=== PATIENT | female | born 1970 | race American Indian/Alaskan Native ===

== ENCOUNTER 2018-03-28 10:48 | Emergency (ER) | payer OTHER ==
--- NOTE | 2018-03-28 11:31 | EDM.PDOC ---
ED HPI GENERAL MEDICAL PROBLEM - General Chief Complaint: Lower Extremity Injury/Pain Stated Complaint: RT KNEE INJURY Time Seen by Provider: 03/28/18 11:29 Source of Information: Reports: Patient History Limitations: Reports: No Limitations - History of Present Illness INITIAL COMMENTS - FREE TEXT/NARRATIVE: HISTORY AND PHYSICAL: History of present illness: Patient is a 47-year-old female here with complaint of right knee injury. She states that yesterday she was getting out of a pickup when her hip popped out and she fell landing on her right knee. She states she injured her right knee one year ago and has had problems with her right hip since then which will pop in and out 2-3 times daily. She denies any new or worsening pain in the hip since her injury yesterday. She states she is barely able to put weight on her right leg and feels as if her knee is unstable. Review of systems: As per history of present illness and below otherwise all systems reviewed and negative. Past medical history: As per history of present illness and as reviewed below otherwise noncontributory. Surgical history: As per history of present illness and as reviewed below otherwise noncontributory. Social history: No reported history of drug or alcohol abuse. Family history: As per history of present illness and as reviewed below otherwise noncontributory. Physical exam: General: Patient sitting comfortably in no acute distress and nontoxic appearing HEENT: Atraumatic, normocephalic, pupils reactive, negative for conjunctival pallor or scleral icterus, mucous membranes moist, throat clear, neck supple, nontender, trachea midline. No meningeal signs. Lungs: Clear to auscultation, breath sounds equal bilaterally, chest nontender. Heart: S1S2, regular, negative for clicks, rubs, or overt murmur. Abdomen: Soft, nondistended, nontender. Negative for masses or hepatosplenomegaly. Negative for costovertebral tenderness. Pelvis: Stable nontender. Genitourinary: Deferred. Rectal: Deferred. Extremities: Mild swelling of the right knee with tenderness to palpation of the posterior knee, medial joint line, patella. Negative anterior and posterior drawer, negative varus and valgus stress. CMS intact distally. No pain to palpation of the hips with normal range of motion. Atraumatic, negative for cords or calf pain. Neurovascular unremarkable. Neuro: Awake, alert, oriented. Cranial nerves II through XII unremarkable. Cerebellum unremarkable. Motor and sensory unremarkable throughout. Exam nonfocal. Notes: Diagnostics: X-ray right knee Therapeutics: Knee immobilizer and crutches Prescriptions: None Impression: Right knee injury Plan: 1. Ice, elevate, and Motrin as instructed 2. Follow-up with orthopedics, please call the number provided to schedule appointment 3. Return to ED as needed as discussed Definitive disposition and diagnosis as appropriate pending reevaluation and review of above. right knee Pain Score (Numeric/FACES): 9 - Related Data Allergies Allergy/AdvReac Type Severity Reaction Status Date / Time No Known Allergies Allergy Verified 03/28/18 11:05 Home Meds: Home Meds . [No Known Home Meds] 03/28/18 [History] Past Medical History HEENT History: Reports: None Cardiovascular History: Reports: None Respiratory History: Reports: None Gastrointestinal History: Reports: None Genitourinary History: Reports: None [employer] History: Reports: None Musculoskeletal History: Reports: Fibromyalgia, SLE, Other (See Below) Other Musculoskeletal History: hip dysplasia, buldging disc Neurological History: Reports: None Psychiatric History: Reports: None Endocrine/Metabolic History: Reports: None Hematologic History: Reports: None Immunologic History: Reports: None Oncologic (Cancer) History: Reports: None Dermatologic History: Reports: None - Infectious Disease History Infectious Disease History: Reports: Chicken Pox, Mumps, Other (See Below) Other Infectious Disease History: childhood - Past Surgical History Head Surgeries/Procedures: Reports: None HEENT Surgical History: Reports: None Cardiovascular Surgical History: Reports: None Respiratory Surgical History: Reports: None GI Surgical History: Reports: None Female Surgical History: Reports: None Endocrine Surgical History: Reports: None Neurological Surgical History: Reports: None Musculoskeletal Surgical History: Reports: None Oncologic Surgical History: Reports: None Dermatological Surgical History: Reports: None Social & Family History - Family History Family Medical History: Noncontributory - Tobacco Use Smoking Status *Q: Current Every Day Smoker Years of Tobacco use: 20 Packs/Tins Daily: 0.4 - Caffeine Use Caffeine Use: Reports: None - Recreational Drug Use Recreational Drug Use: No Review of Systems - Review of Systems Review Of Systems: ROS reveals no pertinent complaints other than HPI. ED EXAM, GENERAL - Physical Exam Exam: See Below (See dictation) Course - Vital Signs Last Recorded V/S: Last Vital Signs Temp 97.2 F 03/28/18 11:03 Pulse 77 03/28/18 11:03 Resp 18 03/28/18 11:03 BP 117/81 03/28/18 11:03 Pulse Ox 99 03/28/18 11:03 Departure - Departure Time of Disposition: 12:21 Disposition: Home, Self-Care 01 Condition: Good Clinical Impression: Right knee injury - Discharge Information Referrals: Daniel Ding [Primary Care Provider] - Forms: ED Department Discharge Additional Instructions: The following information is given to patients seen in the emergency department who are being discharged to home. This information is to outline your options for follow-up care. We provide all patients seen in our emergency department with a follow-up referral. The need for follow-up, as well as the timing and circumstances, are variable depending upon the specifics of your emergency department visit. If you don't have a primary care physician on staff, we will provide you with a referral. We always advise you to contact your personal physician following an emergency department visit to inform them of the circumstance of the visit and for follow-up with them and/or the need for any referrals to a consulting specialist. The emergency department will also refer you to a specialist when appropriate. This referral assures that you have the opportunity for follow-up care with a specialist. All of these measure are taken in an effort to provide you with optimal care, which includes your follow-up. Under all circumstances we always encourage you to contact your private physician who remains a resource for coordinating your care. When calling for follow-up care, please make the office aware that this follow-up is from your recent emergency room visit. If for any reason you are refused follow-up, please contact the [facility] Emergency Department at and asked to speak to the emergency department charge nurse. [facility] Professional [address], [address] [place] [address] 1. Ice, elevate, and Motrin as instructed 2. Follow-up with orthopedics, please call the number provided to schedule appointment 3. Return to ED as needed as discussed
--- NOTE | 2018-03-28 12:19 | CR ---
Indication: Injury and pain Technique: Right knee 3 views Comparison: None Findings/Impression: Bones: Alignment is normal. No fractures or bone lesions. Osteophytes are present in the patella. Joint spaces: Severe osteoarthritis is present in the lateral compartment of the patellofemoral joint. Moderate joint space narrowing is present in the knee joint medial compartment. No significant joint effusion. Soft tissues: Unremarkable. Dictated by Donaldo Banks MD @ Mar 28 2018 12:15PM Signed by Dr. Donaldo Banks @ Mar 28 2018 12:17PM
== END 2018-03-28 13:23 | disposition home or self-care (01) ==
LOC: MW.ED 10:48
DX: S89.91XA Unspecified injury of right lower leg, initial encounter (principal); W19.XXXA Unspecified fall, initial encounter; F17.210 Nicotine dependence, cigarettes, uncomplicated
CPT/HCPCS: 73562-26-RT; 73562-RT; 99283

== ENCOUNTER 2018-11-06 19:19 | Emergency (ER) | payer OTHER ==
[2018-11-06] MEDS ORDERED: Sodium Chloride 0.9% 2.5 ML Syringe FLUSH PRN (19:25)
[2018-11-06] MEDS ORDERED: Albuterol/Ipratropium 3.0-0.5 MG/3 ML Neb Soln NEB ONE (19:25)
[2018-11-06] MEDS ORDERED: Sodium Chloride 0.9% 10 ML Syringe FLUSH PRN (19:25)
[2018-11-06] MEDS ORDERED: Ondansetron 4 MG/2 ML SDV IVPUSH ONE (19:26)
[2018-11-06] MEDS ORDERED: Morphine 2 MG/ML Syringe IVPUSH ONE (19:26)
[2018-11-06] MEDS ORDERED: Ondansetron 4 MG/2 ML SDV ONE (19:27)
[2018-11-06] MEDS ORDERED: Morphine 4 MG/ML Syringe ONE (19:27)
[2018-11-06] MEDS ORDERED: Aspirin 81 MG Tab.Chew PO ONE (19:28)
--- NOTE | 2018-11-06 19:28 | EDM.PDOC ---
ED HPI GENERAL MEDICAL PROBLEM - General Chief Complaint: Chest Pain Stated Complaint: CHEST PAIN Time Seen by Provider: 11/06/18 19:23 - History of Present Illness INITIAL COMMENTS - FREE TEXT/NARRATIVE: HISTORY AND PHYSICAL: History of present illness: The patient is a 48-year-old female who denies pre-existing medical problems and has a history of a father who has cardiac disease and presents with episodic left upper chest wall pain that has been ongoing for the last 2 months but is worse the last 2 days and especially more intense this evening. She denies any trauma and has not had any cough or fevers shortness of breath or abdominal pain vomiting or diarrhea. She says that it intensified today and she did not take any medications for the pain in the last 2 days. She is a smoker and says that she "quit smoking last Wednesday" but smoked less than a half a pack per day in her history. She denies drug use. She says she has not had any URI symptoms and that the pain has always been the same location but tonight it is radiating to her left arm. She does not take any prescription medications except diclofenac. She denies and says that she is perimenopausal and she has been eating and drinking normally and admits that she did have one cocktail this evening.. She has no history of food intolerance no kidney issues and no urinary symptoms. She denies any upper abdominal pain more specifically in the left upper quadrant and she points to the left upper chest wall area as the site of her pain and cannot describe it just saying that it just "hurts". She has no neck pain no head neck or back pain. Despite her father's history the patient has never been diagnosed with any cardiac issues or pulmonary problems. Review of systems: As per history of present illness and below otherwise all systems reviewed and negative. Past medical history: As per history of present illness and as reviewed below otherwise noncontributory. Surgical history: As per history of present illness and as reviewed below otherwise noncontributory. Social history: No reported history of drug or alcohol abuse. Family history: As per history of present illness and as reviewed below otherwise noncontributory. Physical exam: General: Well-developed well-nourished overweight female who is nontoxic and speaking without breathlessness here in the ED. She looks uncomfortable and seems to have forced exhalations on my evaluation but can be redirected to stop. Vital signs are noted by me and she prefers to sit up in bed rather than lay down. She did have an episode of vomiting here in the ED but says that that is the first time. HEENT: Atraumatic, normocephalic, pupils reactive, negative for conjunctival pallor or scleral icterus, mucous membranes moist, throat clear, neck supple, nontender, trachea midline. Lungs: Clear to auscultation but there is tight exchange of air throughout all pearce and more diminished in the left base but no wheezing or stridor, there seems to be some abdominal work of breathing but it is unclear if this is voluntary or involuntary,, breath sounds equal bilaterally, chest nontender. There are no palpable defects or deformities in the left upper chest wall and there is some tenderness but I cannot reproduce the pain exactly. Heart: S1S2, regular rate and rhythm no overt murmurs Abdomen: Soft, nondistended, nontender. Specifically there is no left upper quadrant tenderness on palpation or epigastric tenderness, there is no rebound or guarding and bowel sounds are slightly hypoactive. Negative for masses or hepatosplenomegaly. Negative for costovertebral tenderness. Pelvis: Stable nontender. Genitourinary: Deferred. Rectal: Deferred. Extremities: Atraumatic, negative for cords or calf pain. Neurovascular unremarkable. No pedal edema or leg asymmetry Neuro: Awake, alert, oriented. Cranial nerves II through XII unremarkable. Cerebellum unremarkable. Motor and sensory unremarkable throughout. Exam nonfocal. Skin: There is no diaphoresis and turgor is normal, no overt rashes or lesions Diagnostics: EKG CBC CMP troponin d-dimer INR lactate alcohol level I view chest x-ray CTA of the chest Therapeutics: IV O2 monitor IV fluids Zofran aspirin duo neb morphine Patient refused morphine so Toradol was ordered Patient also refused Toradol and told nursing that she would rather medicate with alcohol and home as needed. Blood pressure is 119/72 and patient is insisting that she is feeling better and does not want further testing but has been explained to her that her d- dimer is elevated and she does need further workup. She and both understand and she is now agreeable to stay after my discussion with her. Patient says she is feeling completely asymptomatic and received no medications for pain. I discussed with her and her all testing results and said that in light of her lactate and the atelectasis seen on the CT scan we would proceed to place her on an antibiotic in case she is trying to manifest an infectious process. Patient follows at [facility] and says she will follow- up there tomorrow and I have advised her on reasons to return the ED. She is also aware of the CT scan findings of the distended stomach and we'll continue to monitor those symptoms but she has no abdominal discomfort. Due to her family history of cardiac disease in her father the patient was offered observation admission here to do serial EKGs and cardiac enzymes as it is not completely clear why the patient had this chest pain and she is declining at this time. She is speaking clearly and easily and is clinically competent and her is at bedside and concurs that he will return with her if there are any issues. She understands risks and accepts them as does the . Impression: Left chest pain resolved etiology unclear stable Definitive disposition and diagnosis as appropriate pending reevaluation and review of above. Chest Pain Score (Numeric/FACES): 7 - Related Data Allergies Allergy/AdvReac Type Severity Reaction Status Date / Time No Known Allergies Allergy Verified 11/06/18 19:26 Home Meds: Home Meds . [No Known Home Meds] 03/28/18 [History] Past Medical History HEENT History: Reports: None Cardiovascular History: Reports: None Respiratory History: Reports: None Gastrointestinal History: Reports: None Genitourinary History: Reports: None ORDER DISPATCHER History: Reports: None Musculoskeletal History: Reports: Fibromyalgia, SLE, Other (See Below) Other Musculoskeletal History: hip dysplasia, buldging disc Neurological History: Reports: None Psychiatric History: Reports: None Endocrine/Metabolic History: Reports: None Hematologic History: Reports: None Immunologic History: Reports: None Oncologic (Cancer) History: Reports: None Dermatologic History: Reports: None - Infectious Disease History Infectious Disease History: Reports: Chicken Pox, Mumps, Other (See Below) Other Infectious Disease History: childhood - Past Surgical History Head Surgeries/Procedures: Reports: None HEENT Surgical History: Reports: None Cardiovascular Surgical History: Reports: None Respiratory Surgical History: Reports: None GI Surgical History: Reports: None Female Surgical History: Reports: None Endocrine Surgical History: Reports: None Neurological Surgical History: Reports: None Musculoskeletal Surgical History: Reports: None Oncologic Surgical History: Reports: None Dermatological Surgical History: Reports: None Social & Family History - Family History Family Medical History: Noncontributory - Caffeine Use Caffeine Use: Reports: None ED ROS GENERAL - Review of Systems Review Of Systems: ROS reveals no pertinent complaints other than HPI. ED EXAM, GENERAL - Physical Exam Exam: See Below (See dictation) Course - Vital Signs Last Recorded V/S: Last Vital Signs Temp 36.1 C 11/06/18 19:20 Pulse 73 11/06/18 21:08 Resp 17 11/06/18 20:13 BP 122/73 11/06/18 21:08 Pulse Ox 98 11/06/18 21:08 - Orders/Labs/Meds Orders: Active Orders 24 hr Category Date Time Status Cardiac Monitoring [RC] . DIRECTED Care 11/06/18 19:24 Active EKG Documentation Completion [RC] STAT Care 11/06/18 19:24 Active Oxygen Therapy, ED [RC] ASDIRECTED Care 11/06/18 19:24 Active Pulse Oximetry [RC] ASDIRECTED Care 11/06/18 19:24 Active RT Aerosol Therapy [RC] ASDIRECTED Care 11/06/18 19:26 Active Sodium Chloride 0.9% [Normal Saline] 1,000 ml Med 11/06/18 19:30 Active IV ASDIRECTED Sodium Chloride 0.9% [Saline Flush] Med 11/06/18 19:25 Active 10 ml FLUSH ASDIRECTED PRN Sodium Chloride 0.9% [Saline Flush] Med 11/06/18 19:25 Active 2.5 ml FLUSH ASDIRECTED PRN Saline Lock Insert [OM.PC] Stat Oth 11/06/18 19:24 Ordered Medication Orders Sodium Chloride (Normal Saline) 1,000 mls @ 125 mls/hr IV ASDIRECTED ALEXI Last Infusion: 11/06/18 21:04 Dose: 999 mls/hr Admin: 11/06/18 19:34 Dose: 125 mls/hr Sodium Chloride (Saline Flush) 10 ml FLUSH ASDIRECTED PRN PRN Reason: Keep Vein Open Last Admin: 11/06/18 19:40 Dose: 10 ml Sodium Chloride (Saline Flush) 2.5 ml FLUSH ASDIRECTED PRN PRN Reason: Keep Vein Open Last Admin: 11/06/18 19:40 Dose: 2.5 ml Labs: Laboratory Tests 11/06/18 11/06/18 11/06/18 Range/Units 19:24 19:24 19:24 WBC 6.23 (4.0-11.0) K/uL RBC 4.49 (4.30-5.90) M/uL Hgb 15.4 (12.0-16.0) g/dL Hct 45.6 (36.0-46.0) % MCV 101.6 H (80.0-98.0) fL MCH 34.3 H (27.0-32.0) pg MCHC 33.8 (31.0-37.0) g/dL RDW Std Deviation 56.7 (28.0-62.0) fl RDW Coeff of Stephanie 15 (11.0-15.0) % Plt Count 214 (150-400) K/uL MPV 9.20 (7.40-12.00) fL Neut % (Auto) 46.0 L (48.0-80.0) % Lymph % (Auto) 42.9 H (16.0-40.0) % Kemper % (Auto) 10.1 (0.0-15.0) % Eos % (Auto) 0.5 (0.0-7.0) % Baso % (Auto) 0.5 (0.0-1.5) % Neut # (Auto) 2.9 (1.4-5.7) K/uL Lymph # (Auto) 2.7 H (0.6-2.4) K/uL Kemper # (Auto) 0.6 (0.0-0.8) K/uL Eos # (Auto) 0.0 (0.0-0.7) K/uL Baso # (Auto) 0.0 (0.0-0.1) K/uL Nucleated RBC % 0.0 /100WBC Nucleated RBCs # 0 K/uL INR 0.96 D-Dimer, Quantitative 0.77 H (0.0-0.50) mg/L FEU Lactate (0.20-2.00) mmol/L Sodium 142 (136-145) mmol/L Potassium 4.0 (3.5-5.1) mmol/L Chloride 105 (98-107) mmol/L Carbon Dioxide 21.9 (21.0-32.0) mmol/L BUN 9 (7.0-18.0) mg/dL Creatinine 1.1 H (0.6-1.0) mg/dL Est Cr Clr Drug Dosing TNP Estimated GFR (MDRD) 52.6 ml/min Glucose 108 H (74-106) mg/dL Calcium 9.6 (8.5-10.1) mg/dL Total Bilirubin 0.3 (0.2-1.0) mg/dL AST 99 H (15-37) IU/L ALT 48 (14-63) IU/L Alkaline Phosphatase 122 H (46-116) U/L Troponin I < 0.050 (0.000-0.056) ng/mL Total Protein 7.5 (6.4-8.2) g/dL Albumin 3.5 (3.4-5.0) g/dL Globulin 4.0 (2.6-4.0) g/dL Albumin/Globulin Ratio 0.9 (0.9-1.6) Urine Color Urine Appearance Urine pH (5.0-8.0) Ur Specific Dundee (1.001-1.035) Urine Protein (NEGATIVE) mg/dL Urine Glucose (UA) (NEGATIVE) mg/dL Urine Ketones (NEGATIVE) mg/dL Urine Occult Blood (NEGATIVE) Urine Nitrite (NEGATIVE) Urine Bilirubin (NEGATIVE) Urine Urobilinogen (<2.0) EU/dL Ur Leukocyte Esterase (NEGATIVE) Urine HCG, Qual (NEGATIVE) Ethyl Alcohol mg/dL 11/06/18 11/06/18 11/06/18 Range/Units 19:24 19:24 20:01 WBC (4.0-11.0) K/uL RBC (4.30-5.90) M/uL Hgb (12.0-16.0) g/dL Hct (36.0-46.0) % MCV (80.0-98.0) fL MCH (27.0-32.0) pg MCHC (31.0-37.0) g/dL RDW Std Deviation (28.0-62.0) fl RDW Coeff of Stephanie (11.0-15.0) % Plt Count (150-400) K/uL MPV (7.40-12.00) fL Neut % (Auto) (48.0-80.0) % Lymph % (Auto) (16.0-40.0) % Kemper % (Auto) (0.0-15.0) % Eos % (Auto) (0.0-7.0) % Baso % (Auto) (0.0-1.5) % Neut # (Auto) (1.4-5.7) K/uL Lymph # (Auto) (0.6-2.4) K/uL Kemper # (Auto) (0.0-0.8) K/uL Eos # (Auto) (0.0-0.7) K/uL Baso # (Auto) (0.0-0.1) K/uL Nucleated RBC % /100WBC Nucleated RBCs # K/uL INR D-Dimer, Quantitative (0.0-0.50) mg/L FEU Lactate 3.5 H (0.20-2.00) mmol/L Sodium (136-145) mmol/L Potassium (3.5-5.1) mmol/L Chloride (98-107) mmol/L Carbon Dioxide (21.0-32.0) mmol/L BUN (7.0-18.0) mg/dL Creatinine (0.6-1.0) mg/dL Est Cr Clr Drug Dosing Estimated GFR (MDRD) ml/min Glucose (74-106) mg/dL Calcium (8.5-10.1) mg/dL Total Bilirubin (0.2-1.0) mg/dL AST (15-37) IU/L ALT (14-63) IU/L Alkaline Phosphatase (46-116) U/L Troponin I (0.000-0.056) ng/mL Total Protein (6.4-8.2) g/dL Albumin (3.4-5.0) g/dL Globulin (2.6-4.0) g/dL Albumin/Globulin Ratio (0.9-1.6) Urine Color YELLOW Urine Appearance CLEAR Urine pH 5.5 (5.0-8.0) Ur Specific Dundee <= 1.005 (1.001-1.035) Urine Protein NEGATIVE (NEGATIVE) mg/dL Urine Glucose (UA) NEGATIVE (NEGATIVE) mg/dL Urine Ketones NEGATIVE (NEGATIVE) mg/dL Urine Occult Blood NEGATIVE (NEGATIVE) Urine Nitrite NEGATIVE (NEGATIVE) Urine Bilirubin NEGATIVE (NEGATIVE) Urine Urobilinogen 0.2 (<2.0) EU/dL Ur Leukocyte Esterase NEGATIVE (NEGATIVE) Urine HCG, Qual (NEGATIVE) Ethyl Alcohol 211 mg/dL 11/06/18 Range/Units 20:01 WBC (4.0-11.0) K/uL RBC (4.30-5.90) M/uL Hgb (12.0-16.0) g/dL Hct (36.0-46.0) % MCV (80.0-98.0) fL MCH (27.0-32.0) pg MCHC (31.0-37.0) g/dL RDW Std Deviation (28.0-62.0) fl RDW Coeff of Stephanie (11.0-15.0) % Plt Count (150-400) K/uL MPV (7.40-12.00) fL Neut % (Auto) (48.0-80.0) % Lymph % (Auto) (16.0-40.0) % Kemper % (Auto) (0.0-15.0) % Eos % (Auto) (0.0-7.0) % Baso % (Auto) (0.0-1.5) % Neut # (Auto) (1.4-5.7) K/uL Lymph # (Auto) (0.6-2.4) K/uL Kemper # (Auto) (0.0-0.8) K/uL Eos # (Auto) (0.0-0.7) K/uL Baso # (Auto) (0.0-0.1) K/uL Nucleated RBC % /100WBC Nucleated RBCs # K/uL INR D-Dimer, Quantitative (0.0-0.50) mg/L FEU Lactate (0.20-2.00) mmol/L Sodium (136-145) mmol/L Potassium (3.5-5.1) mmol/L Chloride (98-107) mmol/L Carbon Dioxide (21.0-32.0) mmol/L BUN (7.0-18.0) mg/dL Creatinine (0.6-1.0) mg/dL Est Cr Clr Drug Dosing Estimated GFR (MDRD) ml/min Glucose (74-106) mg/dL Calcium (8.5-10.1) mg/dL Total Bilirubin (0.2-1.0) mg/dL AST (15-37) IU/L ALT (14-63) IU/L Alkaline Phosphatase (46-116) U/L Troponin I (0.000-0.056) ng/mL Total Protein (6.4-8.2) g/dL Albumin (3.4-5.0) g/dL Globulin (2.6-4.0) g/dL Albumin/Globulin Ratio (0.9-1.6) Urine Color Urine Appearance Urine pH (5.0-8.0) Ur Specific Dundee (1.001-1.035) Urine Protein (NEGATIVE) mg/dL Urine Glucose (UA) (NEGATIVE) mg/dL Urine Ketones (NEGATIVE) mg/dL Urine Occult Blood (NEGATIVE) Urine Nitrite (NEGATIVE) Urine Bilirubin (NEGATIVE) Urine Urobilinogen (<2.0) EU/dL Ur Leukocyte Esterase (NEGATIVE) Urine HCG, Qual NEGATIVE (NEGATIVE) Ethyl Alcohol mg/dL Meds: Medications Generic Name Dose Route Start Last Admin Trade Name Freq PRN Reason Stop Dose Admin Sodium Chloride 1,000 mls @ 125 mls/hr 11/06/18 19:30 11/06/18 21:04 Normal Saline IV 999 mls/hr ASDIRECTED ALEXI Infusion Sodium Chloride 10 ml 11/06/18 19:25 11/06/18 19:40 Saline Flush FLUSH 10 ml ASDIRECTED PRN Administration Keep Vein Open Sodium Chloride 2.5 ml 11/06/18 19:25 11/06/18 19:40 Saline Flush FLUSH 2.5 ml ASDIRECTED PRN Administration Keep Vein Open Discontinued Medications Generic Name Dose Route Start Last Admin Trade Name Freemily PRN Reason Stop Dose Admin Albuterol/Ipratropium 3 ml 11/06/18 19:25 11/06/18 19:35 Duoneb 3.0-0.5 Mg/3 Ml NEB 11/06/18 19:26 3 ml ONETIME ONE Administration Aspirin 324 mg 11/06/18 19:28 11/06/18 19:40 Aspirin PO 11/06/18 19:29 324 mg ONETIME ONE Administration Iopamidol 68 ml 11/06/18 20:47 11/06/18 20:47 Isovue Multipack-370 (76%) IVPUSH 11/06/18 20:48 68 ml ONETIME ONE Administration Ketorolac Tromethamine 30 mg 11/06/18 19:36 11/06/18 19:40 Toradol IVPUSH 11/06/18 19:37 Not Given ONETIME ONE Morphine Sulfate 4 mg 11/06/18 19:26 11/06/18 19:37 Morphine IVPUSH 11/06/18 19:27 Not Given ONETIME ONE Morphine Sulfate Confirm 11/06/18 19:27 11/06/18 19:38 Morphine Administered 11/06/18 19:28 Not Given Dose 4 mg .ROUTE .STK-MED ONE Ondansetron HCl 4 mg 11/06/18 19:26 11/06/18 19:35 Zofran IVPUSH 11/06/18 19:27 4 mg ONETIME ONE Administration Ondansetron HCl Confirm 11/06/18 19:27 11/06/18 19:37 Zofran Administered 11/06/18 19:28 Not Given Dose 4 mg .ROUTE .STK-MED ONE Departure - Departure Time of Disposition: 21:40 Disposition: Home, Self-Care 01 Condition: Good Clinical Impression: Left-sided chest pain - Discharge Information Referrals: PCP,None [Primary Care Provider] - Forms: ED Department Discharge Additional Instructions: The following information is given to patients seen in the emergency department who are being discharged to home. This information is to outline your options for follow-up care. We provide all patients seen in our emergency department with a follow-up referral. The need for follow-up, as well as the timing and circumstances, are variable depending upon the specifics of your emergency department visit. If you don't have a primary care physician on staff, we will provide you with a referral. We always advise you to contact your personal physician following an emergency department visit to inform them of the circumstance of the visit and for follow-up with them and/or the need for any referrals to a consulting specialist. The emergency department will also refer you to a specialist when appropriate. This referral assures that you have the opportunity for followup care with a specialist. All of these measure are taken in an effort to provide you with optimal care, which includes your followup. Under all circumstances we always encourage you to contact your private physician who remains a resource for coordinating your care. When calling for followup care, please make the office aware that this follow-up is from your recent emergency room visit. If for any reason you are refused follow-up, please contact the [facility] emergency department at and ask to speak to the emergency department charge nurse. [facility] Primary care- Internal Medicine and Family [address] [address] Please call and follow-up at [facility] with your provider or one of our providers for reevaluation and further care and push hydration. Avoid alcohol and continue to reduce and quit tobacco use. Please use [id number] medications for pain management as you choose and please take antibiotics as directed. Return to ER as needed and as discussed - My Orders Last 24 Hours: My Active Orders 11/06/18 19:24 Cardiac Monitoring [RC] . DIRECTED EKG Documentation Completion [RC] STAT Oxygen Therapy, ED [RC] ASDIRECTED Pulse Oximetry [RC] ASDIRECTED Saline Lock Insert [OM.PC] Stat 11/06/18 19:25 Sodium Chloride 0.9% [Saline Flush] 10 ml FLUSH ASDIRECTED PRN Sodium Chloride 0.9% [Saline Flush] 2.5 ml FLUSH ASDIRECTED PRN 11/06/18 19:26 RT Aerosol Therapy [RC] ASDIRECTED 11/06/18 19:30 Sodium Chloride 0.9% [Normal Saline] 1,000 ml IV ASDIRECTED - Assessment/Plan Last 24 Hours: My Active Orders 11/06/18 19:24 Cardiac Monitoring [RC] . DIRECTED EKG Documentation Completion [RC] STAT Oxygen Therapy, ED [RC] ASDIRECTED Pulse Oximetry [RC] ASDIRECTED Saline Lock Insert [OM.PC] Stat 11/06/18 19:25 Sodium Chloride 0.9% [Saline Flush] 10 ml FLUSH ASDIRECTED PRN Sodium Chloride 0.9% [Saline Flush] 2.5 ml FLUSH ASDIRECTED PRN 11/06/18 19:26 RT Aerosol Therapy [RC] ASDIRECTED 11/06/18 19:30 Sodium Chloride 0.9% [Normal Saline] 1,000 ml IV ASDIRECTED
[2018-11-06] MEDS ORDERED: Sodium Chloride 0.9% 1,000 ML IV SCH (19:30)
[2018-11-06] MEDS ORDERED: Ketorolac 30 MG/ML SDV IVPUSH ONE (19:36)
--- NOTE | 2018-11-06 19:55 | CR ---
HISTORY: Shortness of breath. COMPARISON: None. FINDINGS: Single portable AP view of the chest. The lungs are clear. Costophrenic angles sharp. Mild elevation of the right hemidiaphragm. The heart size and pulmonary vascularity within normal limits. Bony structures appear intact. Dictated by Jennifer Booker MD @ Nov 06 2018 7:54PM Signed by Dr. Jennifer Booker @ Nov 06 2018 7:54PM
[2018-11-06 20:01] LABS: BLOOD UREA NITROGEN,BUN 9 mg/dL (7.0-18.0); CARBON DIOXIDE,CO2 21.9 mmol/L (21.0-32.0); CHLORIDE,CL 105 mmol/L (98-107); GLUCOSE RANDOM 108 mg/dL (74-106); SODIUM,NA 142 mmol/L (136-145)
[2018-11-06] MEDS ORDERED: Iopamidol 755 MG/ML 500 ML Multipack Bottle IVPUSH ONE (20:47)
--- NOTE | 2018-11-06 21:22 | CT ---
INDICATION: Chest pain. TECHNIQUE: CT chest angiogram performed after IV injection of 60 mL of Isovue-370. FINDINGS: Mild elevation right hemidiaphragm. No central pulmonary embolus. Peripheral pulmonary arterial opacification is somewhat washed out limiting evaluation of the more peripheral pulmonary arterial branches. No definite peripheral pulmonary embolus. Heart is mildly enlarged. Mild patchy ground-glass opacity in the lungs most prominent dependently and in the lower lobes could be in part related atelectasis but a component of inflammatory etiologies not excluded. Main pulmonary artery is mildly prominent. Postsurgical changes of prior gastric bypass surgery. Moderate amount of fluid with air-fluid level in the excluded portion of the stomach is more than typically expected.Tubular shaped areas of low-density in the central liver and left hepatic lobe may be related to vascular structures which are uncalcified. Remainder negative. IMPRESSION: 1. No acute disease in the chest including no pulmonary embolus. Peripheral pulmonary artery arteries are not well assessed due to the IV contrast bolus being somewhat washed out 2. Postsurgical changes of gastric bypass surgery with a moderate amount of fluid and air fluid level within the excluded portion the stomach. A moderate amount of fluid in the excluded portion of the stomach is more than typical. This finding could be further assessed with an follow-up upper GI exam if clinically desired. 3. Mild ground-glass opacity in the lungs may be related to atelectasis although a component of inflammation is not excluded. Please note that all CT scans at this facility use dose modulation, iterative reconstruction, and/or weight-based dosing when appropriate to reduce radiation dose to as low as reasonably achievable. Dictated by Subhash Silveira MD @ Nov 06 2018 9:19PM Signed by Dr. Subhash Silveira @ Nov 06 2018 9:19PM
== END 2018-11-06 21:50 | disposition home or self-care (01) ==
LOC: MW.ED 19:19
DX: R07.89 Other chest pain (principal)
CPT/HCPCS: 36415; 71045; 71275; 80053; 80320; 81003; 81025; 83605; 84484; 85025; 85379; 85610; 93005; 94640; 96374; 99285; A9270; J2405; J7040; Q9967; 99284; G0480; J7620-GY

== ENCOUNTER 2020-07-02 15:32 | Emergency (ER) | payer SELFPAY ==
[2020-07-02] MEDS ORDERED: Sodium Chloride 0.9% 1,000 ML IV ONE (15:50)
[2020-07-02] MEDS ORDERED: Meclizine 25 MG Tab PO ONE (15:50)
--- NOTE | 2020-07-02 15:56 | EDM.PDOC ---
ED HPI GENERAL MEDICAL PROBLEM - General Chief Complaint: General Stated Complaint: DIZZINESS AND PAIN IN LEGS,N/V Time Seen by Provider: 07/02/20 15:39 Source of Information: Reports: Patient History Limitations: Reports: No Limitations - History of Present Illness INITIAL COMMENTS - FREE TEXT/NARRATIVE: Patient is a 49-year-old female who presents today for dizziness for the past 2 to 3 weeks. Patient states this is made worse when she looks to the right. Patient also states she has been dealing with some neck and hip pain. Patient denies any nausea vomiting diarrhea chest pain shortness of breath fevers or chills. - Related Data Allergies Allergy/AdvReac Type Severity Reaction Status Date / Time promethazine [From Phenergan] Allergy Other Verified 07/02/20 15:56 Home Meds: Home Meds . [No Known Home Meds] 07/02/20 [History] Past Medical History HEENT History: Reports: None Cardiovascular History: Reports: None Respiratory History: Reports: None Gastrointestinal History: Reports: None Genitourinary History: Reports: None EDGER AUTOMATIC History: Reports: None Musculoskeletal History: Reports: Fibromyalgia, SLE, Other (See Below) Other Musculoskeletal History: hip dysplasia, buldging disc Neurological History: Reports: None Psychiatric History: Reports: None Endocrine/Metabolic History: Reports: None Insulin Pump Model and Manager Area: N/A Hematologic History: Reports: None Immunologic History: Reports: None Oncologic (Cancer) History: Reports: None Dermatologic History: Reports: None - Infectious Disease History Infectious Disease History: Reports: Chicken Pox, Mumps, Other (See Below) Other Infectious Disease History: childhood - Past Surgical History Head Surgeries/Procedures: Reports: None HEENT Surgical History: Reports: None Cardiovascular Surgical History: Reports: None Respiratory Surgical History: Reports: None GI Surgical History: Reports: None Female Surgical History: Reports: None Endocrine Surgical History: Reports: None Neurological Surgical History: Reports: None Musculoskeletal Surgical History: Reports: None Oncologic Surgical History: Reports: None Dermatological Surgical History: Reports: None Social & Family History - Family History Family Medical History: No Pertinent Family History Cardiac: Reports: Other (See Below) Other Cardiac Family History: States father have cardiac issues - Caffeine Use Caffeine Use: Reports: None ED ROS GENERAL - Review of Systems Review Of Systems: See Below Constitutional: Reports: No Symptoms HEENT: Reports: No Symptoms Respiratory: Reports: No Symptoms Cardiovascular: Reports: No Symptoms Endocrine: Reports: No Symptoms GI/Abdominal: Reports: No Symptoms : Reports: No Symptoms Musculoskeletal: Reports: No Symptoms Skin: Reports: No Symptoms Neurological: Reports: Dizziness Psychiatric: Reports: No Symptoms Hematologic/Lymphatic: Reports: No Symptoms Immunologic: Reports: No Symptoms ED EXAM, DIZZINESS - Physical Exam Exam: See Below Exam Limited By: No Limitations General Appearance: Alert, WD/WN, No Apparent Distress Eye Exam: Bilateral Eye: EOMI, PERRL Nystagmus: worsens with head to R Ears: Normal External Exam Head Exam: Atraumatic, Normocephalic Vertigo: worsens with head to R Neck: Supple, Non-Tender Respiratory/Chest: No Respiratory Distress, Lungs Clear Cardiovascular: Normal Peripheral Pulses, Regular Rate, Rhythm GI/Abdominal: Normal Bowel Sounds, Soft, Non-Tender Neurological: Alert, Normal Mood/Affect, Normal Dorsiflexion, CN II-XII Intact #1 Interpretation EKG Date: 07/02/20 Time: 15:40 Rhythm: NSR Rate (Beats/Min): 87 ST-T: Depressed Course - Vital Signs Last Recorded V/S: Last Vital Signs Temp 97.3 F 07/02/20 15:44 Pulse 80 07/02/20 16:54 Resp 17 07/02/20 16:54 BP 116/71 07/02/20 16:54 Pulse Ox 100 07/02/20 16:54 - Orders/Labs/Meds Orders: Active Orders 24 hr Category Date Time Status EKG Documentation Completion [RC] STAT Care 07/02/20 15:51 Active DRUG SCREEN, URINE [URCHEM] Stat Lab 07/02/20 15:51 Ordered UA W/MAULIK RFLX IF INDICATED [URIN] Stat Lab 07/02/20 15:51 Ordered Labs: Laboratory Tests 07/02/20 07/02/20 Range/Units 16:05 16:05 WBC 5.57 (4.0-11.0) K/uL RBC 3.14 L (4.30-5.90) M/uL Hgb 11.8 L (12.0-16.0) g/dL Hct 33.7 L (36.0-46.0) % MCV 107.3 H (80.0-98.0) fL MCH 37.6 H (27.0-32.0) pg MCHC 35.0 (31.0-37.0) g/dL RDW Std Deviation 67.8 H (28.0-62.0) fl RDW Coeff of Stephanie 18 H (11.0-15.0) % Plt Count 217 (150-400) K/uL MPV 9.90 (7.40-12.00) fL Neut % (Auto) 80.6 H (48.0-80.0) % Lymph % (Auto) 14.2 L (16.0-40.0) % [place] % (Auto) 5.0 (0.0-15.0) % Eos % (Auto) 0.0 (0.0-7.0) % Baso % (Auto) 0.2 (0.0-1.5) % Neut # (Auto) 4.5 (1.4-5.7) K/uL Lymph # (Auto) 0.8 (0.6-2.4) K/uL [place] # (Auto) 0.3 (0.0-0.8) K/uL Eos # (Auto) 0.0 (0.0-0.7) K/uL Baso # (Auto) 0.0 (0.0-0.1) K/uL Nucleated RBC % 0.0 /100WBC Nucleated RBCs # 0 K/uL Sodium 137 (136-145) mmol/L Potassium 3.9 (3.5-5.1) mmol/L Chloride 96 L (98-107) mmol/L Carbon Dioxide 27.5 (21.0-32.0) mmol/L BUN 10 (7.0-18.0) mg/dL Creatinine 1.1 H (0.6-1.0) mg/dL Est Cr Clr Drug Dosing 58.84 mL/min Estimated GFR (MDRD) 52.4 ml/min Glucose 97 (74-106) mg/dL Calcium 8.7 (8.5-10.1) mg/dL Phosphorus 4.3 (2.6-4.7) mg/dL Magnesium 1.5 L (1.8-2.4) mg/dL Total Bilirubin 3.0 H (0.2-1.0) mg/dL AST 176 H (15-37) IU/L ALT 42 (14-63) IU/L Alkaline Phosphatase 255 H (46-116) U/L Troponin I < 0.050 (0.000-0.056) ng/mL Total Protein 7.4 (6.4-8.2) g/dL Albumin 3.0 L (3.4-5.0) g/dL Globulin 4.4 H (2.6-4.0) g/dL Albumin/Globulin Ratio 0.7 L (0.9-1.6) Lipase 48 L (73-393) U/L Meds: Medications Discontinued Medications Generic Name Dose Route Start Last Admin Trade Name Freq PRN Reason Stop Dose Admin Diphenhydramine HCl 25 mg 07/02/20 16:39 07/02/20 16:44 Diphenhydramine 50 Mg/Ml Sdv IVPUSH 07/02/20 16:40 25 mg ONETIME ONE Administration Sodium Chloride 1,000 mls @ 999 mls/hr 07/02/20 15:50 07/02/20 15:56 Normal Saline IV 07/02/20 16:50 999 mls/hr .BOLUS ONE Administration Meclizine HCl 50 mg 07/02/20 15:50 07/02/20 15:56 Meclizine 25 Mg Tab PO 07/02/20 15:51 50 mg ONETIME ONE Administration - Re-Assessments/Exams Free Text/Narrative Re-Assessment/Exam: 07/02/20 17:26 So patient labs were reviewed. Patient does have elevated alk phos but no abdominal tenderness. We made patient aware of the ST depressions in her EKG again she does not have any chest pain tropes are negative. Patient again with x-rays not really even had dizziness she more still has tingling of her upper extremities. Patient also reports repeatedly stumbling or falling due to these pains in her back and lower extremities. Patient is reluctant to take any pain meds. Patient also is not sure about physical therapy. We also reported we can refer patient to a spine surgeon if continue to have the symptoms and back pain. Departure - Departure Time of Disposition: 17:28 Disposition: Home, Self-Care 01 Condition: Good Clinical Impression: Spinal pain - Discharge Information *PRESCRIPTION DRUG MONITORING PROGRAM REVIEWED*: Not Applicable *COPY OF PRESCRIPTION DRUG MONITORING REPORT IN PATIENT IRMA: Not Applicable Instructions: Chronic Back Pain, [id number] Referrals: PCP,None [Primary Care Provider] - Forms: ED Department Discharge Additional Instructions: The following information is given to patients seen in the emergency department who are being discharged to home. This information is to outline your options for follow-up care. We provide all patients seen in our emergency department with a follow-up referral. The need for follow-up, as well as the timing and circumstances, are variable depending upon the specifics of your emergency department visit. If you don't have a primary care physician on staff, we will provide you with a referral. We always advise you to contact your personal physician following an emergency department visit to inform them of the circumstance of the visit and for follow-up with them and/or the need for any referrals to a consulting specialist. The emergency department will also refer you to a specialist when appropriate. This referral assures that you have the opportunity for follow-up care with a specialist. All of these measure are taken in an effort to provide you with optimal care, which includes your follow-up. Under all circumstances we always encourage you to contact your private physician who remains a resource for coordinating your care. When calling for follow-up care, please make the office aware that this follow-up is from your recent emergency room visit. If for any reason you are refused follow-up, please contact the [facility] Emergency Department at and asked to speak to the emergency department charge nurse. Please follow up with your primary care physician. If you do not have a primary care physician, see below: Neurosurgery [facility] [phone] [address], [place] [id number] You were seen today for a multiple of symptoms. You initially complained of some dizziness that we addressed with meclizine. You also reported you have been having frequent falls due to pain in your lower extremities and back. He also has some pain in your neck when turning head to the right. You had no change in vision or numbness tingling to your face. You may be having this pain from your previous spinal injuries that she reported. We recommend you try the rehab and if that does not work we also put a above information to follow-up with a spine surgery. If you have any other concerning symptoms please return to the ED. We also told her that her EKG has some changes but you are not having any chest pain if you have any chest pain or other symptoms please return to the ED. Sepsis Event Note (ED) - Evaluation Sepsis Screening Result: No Definite Risk - Focused Exam Vital Signs: Vital Signs Temp Pulse Resp BP Pulse Ox 07/02/20 16:54 80 17 116/71 100 07/02/20 15:44 97.3 F 100 18 114/78 100 - My Orders Last 24 Hours: My Active Orders 07/02/20 15:51 EKG Documentation Completion [RC] STAT DRUG SCREEN, URINE [URCHEM] Stat UA W/MAULIK RFLX IF INDICATED [URIN] Stat - Assessment/Plan Last 24 Hours: My Active Orders 07/02/20 15:51 EKG Documentation Completion [RC] STAT DRUG SCREEN, URINE [URCHEM] Stat UA W/MAULIK RFLX IF INDICATED [URIN] Stat Plan: Patient is a 49-year-old female presents today for dizziness for the past 2 or 3 weeks. Patient dizziness reproducible on exam. Patient does not seem to be peripheral. Will give meclizine labs and reassess.
[2020-07-02] MEDS ORDERED: diphenhydrAMINE 50 MG/ML SDV IVPUSH ONE (16:39)
[2020-07-02 16:48] LABS: BLOOD UREA NITROGEN,BUN 10 mg/dL (7.0-18.0); CARBON DIOXIDE,CO2 27.5 mmol/L (21.0-32.0); CHLORIDE,CL 96 mmol/L (98-107); GLUCOSE RANDOM 97 mg/dL (74-106); LIPASE 48 U/L (73-393); POTASSIUM,K 3.9 mmol/L (3.5-5.1); SODIUM,NA 137 mmol/L (136-145)
--- NOTE | 2020-07-02 16:54 | CR ---
Indication: Dizziness Comparison: Single view chest November 06, 2018 Technique: Single AP view chest Findings: There is hyperinflation and chronic interstitial change. There is no focal consolidation, effusion, or pneumothorax. The cardiomediastinal silhouette is within normal limits. The bony thorax is grossly intact. Impression: There is hyperinflation and chronic interstitial change without dense consolidation. Dictated by Cholo Murillo MD @ 07/02/2020 4:52:[address] Cholo Murillo @ Jul 02 2020 4:52PM
--- NOTE | 2020-07-02 18:43 | CT ---
INDICATION: Epigastric abdominal pain; elevated alkaline phosphatase; history of gastric bypass surgery. COMPARISON: None. TECHNIQUE: CT abdomen and pelvis with intravenous contrast; coronal and sagittal reformats. FINDINGS: Diffuse severe fatty infiltration of the liver. Hepatomegaly with the liver measuring 25 x 26 x 20 cm. No focal hepatic pathology. No splenic pathology. No pancreatic pathology. Gallbladder is unremarkable. Status post gastric bypass surgery. No adrenal pathology. No kidneys stones or obstructive uropathy. No retroperitoneal lymphadenopathy. No evidence of abdominal or pelvic ascites. No pneumoperitoneum or intestinal obstruction. CT study of the pelvis is unremarkable. Splenic vein, superior mesenteric vein and the portal vein are unremarkable. No abnormal intra pulmonary nodular densities are identified. No evidence of pleural effusion. Normal size cardiac silhouette without any evidence of pericardial effusion. IMPRESSION: 1. Diffuse severe fatty infiltration of the liver with hepatomegaly. 2. Status post gastric bypass surgery. 3. Negative CT abdomen and pelvis with intravenous contrast otherwise. Please note that all CT scans at this facility use dose modulation, iterative reconstruction, and/or weight-based dosing when appropriate to reduce radiation dose to as low as reasonably achievable. Dictated by Brandi Morataya MD @ 07/02/2020 6:42:[address] Brandi Morataya @ Jul 02 2020 6:42PM
== END 2020-07-02 19:25 | disposition home or self-care (01) ==
LOC: MW.ED 15:32
DX: M54.2 Cervicalgia (principal); Z88.8 Allergy status to other drugs, medicaments and biological substances
CPT/HCPCS: 36415; 71045; 74177; 80053; 80305; 80307; 81001; 83690; 83735; 84100; 84484; 85025; 96374; 99284; A9270; J1200; J7030

== ENCOUNTER 2020-08-23 16:53 | Emergency (ER) | payer MEDICAID ==
--- NOTE | 2020-08-23 19:05 | EDM.PDOC ---
ED HPI GENERAL MEDICAL PROBLEM - General Chief Complaint: Skin Complaint Stated Complaint: RASH ON HANDS, DIZZINESS Time Seen by Provider: 08/23/20 18:02 - History of Present Illness INITIAL COMMENTS - FREE TEXT/NARRATIVE: CHIEF COMPLAINT(S): Rash HISTORY OF PRESENT ILLNESS: He is a 49-year-old woman with a past medical history of gastric bypass who presents to the emergency department with a rash. The patient states that she has had the rash since August 13. She states that she was planting Spanish mint and lemon grass because she is trying to keep away by mosquitoes and bugs. She states [place] however she did have some sun exposure to her hands, legs, and feet. She states that since that day she has been experiencing a rash located on her back of her hands and the back of her arm all the way up to the elbow not around the elbow or around the arm, the top of her knees and the top of her feet. She states that this rash does not itch does not hurt and does not seem to be getting larger. She denies any fevers or chills. She states that in addition to this she got a [employer] vaccine on August 14 and she had minimal side effects except for some dizziness and tiredness the day after which had resolved. She states that the rash does not burn when exposed to sun. She states that she has been putting aloe vera on the rash which does not seem to be helping it and states that her left hand feels like it is stiff. He denies any blisters but states that the skin is sloughing off. She denies any mucosal lesions. She denies any history of liver disease. She denies any exposures. Otherwise ROS is negative. REVIEW OF SYSTEMS: Constitutional: Denies fever, chills. Eyes: Denies eye pain Ears, Nose, Mouth, & Throat: Denies earache Cardiovascular: Denies chest pain Respiratory: Denies shortness of breath Gastrointestinal: Denies Nausea, vomiting, diarrhea, hematochezia. Genitourinary: Denies hematuria Skin: Positive for rash on hands, arms, knee, feet which is red with sloughing of skin MSK: Denies joint pain Neurological: Denies blurred vision, numbness, tingling, weakness Psychiatric: Denies depression PAST MEDICAL HISTORY: As per history of present illness and as reviewed below otherwise noncontributory. SURGICAL HISTORY: As per history of present illness and as reviewed below otherwise noncontributory. SOCIAL HISTORY: As per history of present illness and as reviewed below otherwise noncontributory. FAMILY HISTORY: As per history of present illness and as reviewed below otherwise noncontributory. EXAMINATION OF ORGAN SYSTEMS/BODY AREAS: Constitutional: Blood pressure was 122/83, heart rate 88, respiratory rate 18 with oxygen saturation of 100% on room air. Temperature 30.3 General: A well-appearing woman who is in no acute distress. Nontoxic-appearing psychiatric: Appropriate mood and affect. Eyes: No scleral icterus or conjunctival erythema ENMT: Moist mucous membranes. No pharyngeal erythema no cracked lips, no mucosal lesions. Uvula was midline. Tongue not enlarged. Cardiovascular: Regular, rate, and rhythm. No gallops, murmurs, or rubs. Bilateral upper extremity pulses symmetric and intact. No peripheral edema. No JVD. Respiratory: Lungs clear to auscultation bilaterally. No wheezes, rales, or rhonchi. Gastrointestinal: Soft, non-tender, non-distended. Normoactive bowel sounds Genitourinary: No suprapubic tenderness Musculoskeletal: Normal range of motion. Full range of motion of bilateral hands, R, knee Skin: The patient has a red flaky skin rash located on the posterior aspect of her bilateral hand and forearm extending to the elbow could this rest not on the palms or the soles of the feet. Rashes not on any flexural area. The same rash exist on the lateral top of the knee and the bilateral foot skin sloughing area. Neurological: Alert, GCS 15 distal sensation intact MEDICAL DECISION MAKING AND COURSE IN THE ED WITH INTERPRETATION/REVIEW OF DIAGNOSTIC STUDIES: Is a 49-year-old medical history of prior gastric bypass presents to the emergency department with bilateral red flaky rash located on the tear aspect of the hand, forearm, top of the foot with vital signs and she appears nontoxic. At this time will obtain screening labs. I do believe this rash is likely secondary to irritation contact dermatitis or given the fact that the patient has gastric bypass in the past this could be niacin deficiency and initial presentation of pellagra. I did discuss with patient that she should apply CeraVe U or Cetaphil with ceramide and to soak her arms in a lukewarm bath. I encouraged her to supplement her multivitamin with 30 mg of niacin daily. I did discuss with her that this could be due to niacin deficiency. I recommended that she follow-up with dermatology within 3 to 5 days. She is to return for any new or worsening symptoms such as lesions in her mouth, fever, worsening pain or any concern that she has. She was amenable to this plan had no further questions and was amenable to discharge. Laboratory: CBC reveals leukopenia with a WBC count of 3.95, macrocytic anemia with an MCV of 103.5, hemoglobin of 10.9 and hematocrit of 32.2 otherwise unremarkable. BMP is unremarkable. CRP is less than 0.20. ESR is 2 DISPOSITION: The patient was discharged home in stable condition. The patient will follow up with dermatology in 3 to 5 days CONDITION: Fair PROCEDURES: None FINAL IMPRESSION(S)/DIAGNOSES: 1. Acute rash secondary to irritation contact dermatitis or pellagra Uvaldo Yip M.D. - Related Data Allergies Allergy/AdvReac Type Severity Reaction Status Date / Time promethazine [From Phenergan] Allergy Other Verified 07/02/20 15:56 Home Meds: Home Meds . [No Known Home Meds] 07/02/20 [History] Past Medical History HEENT History: Reports: None Cardiovascular History: Reports: None Respiratory History: Reports: None Gastrointestinal History: Reports: None Genitourinary History: Reports: None TELEPHONE ENGINEER History: Reports: None Musculoskeletal History: Reports: Fibromyalgia, SLE, Other (See Below) Other Musculoskeletal History: hip dysplasia, buldging disc Neurological History: Reports: None Psychiatric History: Reports: None Endocrine/Metabolic History: Reports: None Insulin Pump Model and Sap Integration Architect: N/A Hematologic History: Reports: None Immunologic History: Reports: None Oncologic (Cancer) History: Reports: None Dermatologic History: Reports: None - Infectious Disease History Infectious Disease History: Reports: Chicken Pox, Mumps, Other (See Below) Other Infectious Disease History: childhood - Past Surgical History Head Surgeries/Procedures: Reports: None HEENT Surgical History: Reports: None Cardiovascular Surgical History: Reports: None Respiratory Surgical History: Reports: None GI Surgical History: Reports: None Female Surgical History: Reports: None Endocrine Surgical History: Reports: None Neurological Surgical History: Reports: None Musculoskeletal Surgical History: Reports: None Oncologic Surgical History: Reports: None Dermatological Surgical History: Reports: None Social & Family History - Family History Family Medical History: No Pertinent Family History Cardiac: Reports: Other (See Below) Other Cardiac Family History: States father have cardiac issues - Caffeine Use Caffeine Use: Reports: None ED ROS GENERAL - Review of Systems Review Of Systems: See Below ED EXAM, GENERAL - Physical Exam Exam: See Below Course - Vital Signs Last Recorded V/S: Last Vital Signs Temp 36.7 C 08/23/20 19:42 Pulse 84 08/23/20 19:42 Resp 18 08/23/20 19:42 BP 138/72 08/23/20 19:42 Pulse Ox 98 08/23/20 19:42 - Orders/Labs/Meds Labs: Laboratory Tests 08/23/20 08/23/20 08/23/20 Range/Units 19:02 19:02 19:02 WBC 3.95 L (4.0-11.0) K/uL RBC 3.11 L (4.30-5.90) M/uL Hgb 10.9 L (12.0-16.0) g/dL Hct 32.2 L (36.0-46.0) % MCV 103.5 H (80.0-98.0) fL MCH 35.0 H (27.0-32.0) pg MCHC 33.9 (31.0-37.0) g/dL RDW Std Deviation 66.7 H (28.0-62.0) fl RDW Coeff of Stephanie 18 H (11.0-15.0) % Plt Count 166 (150-400) K/uL MPV 10.10 (7.40-12.00) fL Neut % (Auto) 62.2 (48.0-80.0) % Lymph % (Auto) 31.9 (16.0-40.0) % [place]cho % (Auto) 5.1 (0.0-15.0) % Eos % (Auto) 0.3 (0.0-7.0) % Baso % (Auto) 0.5 (0.0-1.5) % Neut # (Auto) 2.5 (1.4-5.7) K/uL Lymph # (Auto) 1.3 (0.6-2.4) K/uL [place]cho # (Auto) 0.2 (0.0-0.8) K/uL Eos # (Auto) 0.0 (0.0-0.7) K/uL Baso # (Auto) 0.0 (0.0-0.1) K/uL Nucleated RBC % 0.0 /100WBC Nucleated RBCs # 0 K/uL ESR 2 (0-29) mm/hr Sodium 137 (136-145) mmol/L Potassium 4.2 (3.5-5.1) mmol/L Chloride 101 (98-107) mmol/L Carbon Dioxide 23.3 (21.0-32.0) mmol/L BUN 8 (7.0-18.0) mg/dL Creatinine 0.7 (0.6-1.0) mg/dL Est Cr Clr Drug Dosing 92.46 mL/min Estimated GFR (MDRD) > 60.0 ml/min Glucose 66 L (74-106) mg/dL Calcium 8.6 (8.5-10.1) mg/dL C-Reactive Protein <0.20 (0.00-0.90) mg/dL Departure - Departure Time of Disposition: 19:04 Disposition: Home, Self-Care 01 Condition: Fair Clinical Impression: Irritant contact dermatitis, Niacin deficiency [pellagra] - Discharge Information *PRESCRIPTION DRUG MONITORING PROGRAM REVIEWED*: No *COPY OF PRESCRIPTION DRUG MONITORING REPORT IN PATIENT IRMA: No Instructions: Contact Dermatitis, [id number], Contact Dermatitis Referrals: Tigist Haywood MD [Primary Care Provider] - Forms: ED Department Discharge Additional Instructions: You were evaluated today on an emergent basis. At this time given the duration of your symptoms and the areas of where the rash is I do believe this is secondary to a irritant contact dermatitis or Niacin deficiency as an early manifestation of Pellagra. As discussed I recommend you use Ceravue or Cetaphil with ceramide and apply it throughout the day as a barrier. In addition to this I would like you to soak your arms and your feet in a lukewarm bath that may contain oatmeal. In addition to this please make sure you are taking a minimum of 30mg of Niacin daily. I would like you to follow-up with dermatology early next week and primary care for further workup. I would contact them Wednesday for follow-up appointment. As always if you have any worsening symptoms the rash continues to spread, you have any lesions in your mouth, fever, worsening pain I would like you to return to the emergency department. [facility] [address] [place] [address], [address] [place] [address] [phone] The patient is informed of any results of their evaluation and diagnostic workup and all questions are answered. They are given discharge instructions and return precautions. The patient is stable for discharge. The patient states they understand and agree with the plan and that they will return if their symptoms get worse or if they have any new concerns. The following information is given to patients seen in the emergency department who are being discharged to home. This information is to outline your options for follow-up care. We provide all patients seen in our emergency department with a follow-up referral. The need for follow-up, as well as the timing and circumstances, are variable depending upon the specifics of your emergency department visit. If you don't have a primary care physician on staff, we will provide you with a referral. We always advise you to contact your personal physician following an emergency department visit to inform them of the circumstance of the visit and for follow-up with them and/or the need for any referrals to a consulting specialist. The emergency department will also refer you to a specialist when appropriate. This referral assures that you have the opportunity for follow-up care with a specialist. All of these measure are taken in an effort to provide you with optimal care, which includes your follow-up. Under all circumstances we always encourage you to contact your private physician who remains a resource for coordinating your care. When calling for follow-up care, please make the office aware that this follow-up is from your recent emergency room visit. If for any reason you are refused follow-up, please contact the [facility] Emergency Department at and asked to speak to the emergency department charge nurse. Sepsis Event Note (ED) - Evaluation Sepsis Screening Result: No Definite Risk
[2020-08-23 19:22] LABS: BLOOD UREA NITROGEN,BUN 8 mg/dL (7.0-18.0); CARBON DIOXIDE,CO2 23.3 mmol/L (21.0-32.0); CHLORIDE,CL 101 mmol/L (98-107); GLUCOSE RANDOM 66 mg/dL (74-106); POTASSIUM,K 4.2 mmol/L (3.5-5.1); SODIUM,NA 137 mmol/L (136-145)
== END 2020-08-23 19:42 | disposition home or self-care (01) ==
LOC: MW.ED 16:53
DX: L24.9 Irritant contact dermatitis, unspecified cause (principal); E52 Niacin deficiency [pellagra]; Z88.8 Allergy status to other drugs, medicaments and biological substances
CPT/HCPCS: 36415; 80048; 85025; 85652; 86140; 99283

== ENCOUNTER 2020-08-26 16:52 | Emergency (ER) | payer MEDICAID ==
[2020-08-26] MEDS ORDERED: Sodium Chloride 0.9% 2.5 ML Syringe FLUSH PRN (18:21)
[2020-08-26] MEDS ORDERED: Sodium Chloride 0.9% 10 ML Syringe FLUSH PRN (18:21)
[2020-08-26 19:09] LABS: BLOOD UREA NITROGEN,BUN 8 mg/dL (7.0-18.0); CARBON DIOXIDE,CO2 25.3 mmol/L (21.0-32.0); CHLORIDE,CL 101 mmol/L (98-107); GLUCOSE RANDOM 97 mg/dL (74-106); POTASSIUM,K 3.9 mmol/L (3.5-5.1); SODIUM,NA 138 mmol/L (136-145)
--- NOTE | 2020-08-26 19:18 | PCM.SN.2 ---
- Free Text/Narrative Note: EKG done at 1839 sinus rhythm with a heart rate of 73. AL interval 134. Franklin XVII. QT duration 449. QRS has an RSR prime formation in V1. T waves inverted symmetrically in the inferior and precordial leads. Compared to 07/02/2020 RSR prime is new but probably related to lead placement. The T wave inversions have replaced upright and biphasic T waves with a suggestion that this may indicate ischemia or pericarditis were in recovery. Impression new T wave abnormalities.
[2020-08-26] MEDS ORDERED: Niacin 500 MG Tab PO STA ×2 (19:38→19:50)
[2020-08-26] MEDS ORDERED: Iopamidol 755 MG/ML 500 ML Multipack Bottle IVPUSH STA (19:42)
--- NOTE | 2020-08-26 20:08 | EDM.PDOC ---
ED HPI GENERAL MEDICAL PROBLEM - General Chief Complaint: Gastrointestinal Problem Stated Complaint: PLANT BURN Time Seen by Provider: 08/26/20 16:55 Source of Information: Reports: Patient History Limitations: Reports: No Limitations - History of Present Illness INITIAL COMMENTS - FREE TEXT/NARRATIVE: HISTORY AND PHYSICAL: History of present illness: Patient is a 49-year-old female, with a history of gastric bypass surgery, who presents to the ED today with concern of double vision that started this morning at 10am and has been constant. Patient states that she has had a difficult time walking as she gets dizzy and starts to fall over due to double vision which is improved with covering 1 eye. Patient denies any head injury or loss of consciousness. Patient states that she does wear glasses and denies any loss in her vision/blurry vision. Patient states that when she is looking at me currently, she sees 2 of me [id number]. If she covers one eye, the double vi sandrita goes away. Patient states that she was seen recently in the ED on 08/23/2020 after exposure to [place] mint and lemon grass that she was planting and thought she had a burn/chemical exposure to. Patient states that since then, she has had some peeling of her hands and a blister form on her left foot that she has not popped. Patient states she plants [place] mint and lemon grass every year to keep bugs away and states she has never had this occur before. Patient denies any recent antibiotic use. Patient states that recently she was given promethazine and had sores in her mouth that are now nearly completely resolved but does have some residual mouth discomfort. Patient states that she does drink alcohol about 1 time a week socially but denies habitual alcohol use. Patient also expresses some nausea associated with the double vision. Patient denies fever, chills, chest pain, shortness of breath, or cough. Denies headache, neck stiff ness, change in vision, syncope, or near syncope. Denies vomiting, abdominal pain, diarrhea, constipation, or dysuria. Has not noted any blood in urine or stool. Patient has been eating and drinking appropriately. Review of systems: As per history of present illness and below otherwise all systems reviewed and negative. Past medical history: As per history of present illness and as reviewed below otherwise noncontributory. Surgical history: As per history of present illness and as reviewed below otherwise noncontributory. Social history: See social history for further information Family history: As per history of present illness and as reviewed below otherwise noncontributory. Physical exam: General: Patient is alert, oriented to person, place, and time, and in no acute distress. Patient sitting comfortably on exam table. Vitals stable and reviewed by me. HEENT: Visual acuity intact. Atraumatic, normocephalic, pupils equal and reactive bilaterally, negative for conjunctival pallor or scleral icterus, mucous membranes moist, TMs normal bilaterally, throat clear, no oral lesions, neck supple, nontender, trachea midline. No drooling or trismus noted. No meningeal signs. No hot potato voice noted. Lungs: Clear to auscultation, breath sounds equal bilaterally, chest nontender. Heart: S1S2, regular rate and rhythm without overt murmur Abdomen: Soft, nondistended, nontender. Negative for masses or hepatosplenomegal y. Negative for costovertebral tenderness. Pelvis: Stable nontender. Genitourinary: Deferred. Rectal: Deferred. Skin: There is an area of dusky red flaky skin located around the posterior aspect of bilateral hands and forearms that extends to the elbows. This is not on the palms or soles of her hands and feet. No rashes noted to any flexural areas. There is a similar rash on the lateral top of the knee and bilateral feet. There is a large blister of the lateral foot. Negative Nikolsky sign. Otherwise, intact, warm, dry. No lesions or rashes noted. Extremities: See skin. Otherwise, atraumatic, negative for cords or calf pain. Neurovascular unremarkable. Neuro: Awake, alert, oriented to person, place, and time. Cranial nerves II through XII unremarkable. EOMS intact without deficit. Patient does get dizzy with ambulation and unable to walk without assistance. This does improve if she covers 1 eye and able to ambulate easier but still uneasy. No LE/UE drift. No facial drooping. Notes: Dr. Ken directly involved in patient care. Patient is a 49-year-old female who presents emergency room today secondary to double vision that started this morning at about 10-11 am along with dermatitis she believes is related to exposure to [place] Mint that occurred a few days ago. Upon arrival to the ED, patient is alert and oriented to person place and time and does have a dusky red flaky skin on her posterior bilateral hands and forearms that extends to the elbow along with a similar rash on her bilateral knees and feet with a large blister on the lateral aspect of her large foot with negative Nikolsky sign. Patient also has significant diplopia on exam which resolves with covering 1 eye and returns after uncovering. No EOM deficits. Patient does have difficulty with ambulation due to double vision but slightly improved when covering one eye. No other neuro deficits on exam. Patient was seen in the ED on 08/23/2020 secondary to a rash that had been ongoing since August 13. Patient was discharged home after lab work with acute rash secondary to irritation possible contact dermatitis or pellagra. Patient was instructed at that time to take [id number] niacin 30 mg daily. Patient states that she has not taken this as she believes it is the contact with the plant that caused her symptoms, although she has never had a reaction to the splint in the past and has been exposed yearly. Patient does have a history of gastric bypass and states that she does drink and does have several risk factors for pellagra. Dermatitis on exam is nonspecific, however could be pellagra. Given new onset of neuro symptoms, will obtain head and neck angio as well as cardiac evaluation. See Dr. Ken dictation for specific EKG interpretation. Normal sinus rhythm without signs of STEMI. New inverted T waves. CBC shows a decrease in red blood cells at 3.03, hemoglobin decreased at 10.7 (appears chronic compared to prior/past lab work) hematocrit of 30.6. Macrocytic indices with an MCV of 101, MCH of 35.3. RDW of 18. Remainder of CBC unremarkable. ESR within normal limits. INR of 1.06. PTT of 21.7. Chemistry shows mild elevation of bilirubin at 2.2, AST is mildly elevated at 95, and alk phos mildly elevated at 144 (liver function testing mildly elevated on past lab work and this appears chronic). Troponin negative. CRP within normal limits. TSH within normal limits. Chest x-ray shows no acute cardiopulmonary findings. Angiography of the head/neck shows normal CT angiogram of the head and neck. Upon reevaluation of patient, she remains vitally stable and comfortable throughout stay in ED. On repeat evaluation, patient remains alert, oriented to person place and time, but is still having difficulties with ambulation secondary to double vision. Given that patient has ongoing significant neurological symptoms, I recommended patient transfer to a higher level of care in order to have neurological evaluation/MRI. Patient declines transfer and requesting discharge to home. The patient is clinically not intoxicated, free from distracting pain, appears to have intact insight, judgment and reason and in my medical opinion has the capacity to make decisions. The patient is also not under any duress to leave the hospital. In this scenario, it would be battery to subject the patient to treatment / transfer / further diagnostics against her will. I have voiced my concerns for the patient's health given that a full evaluation and treatment has not occurred. I have discussed the need for continued evaluation by neurology to determine if her symptoms are caused by a condition that presents risk of or morbidity. Risks including but not limited to , permanent disability, prolonged hospitalization, prolonged illness were discussed with patient. I tried offering alternative options in hopes of patient might be amendable to partial evaluation and treatment would be medically beneficial to the patient, though the patient declined my options and insisted on leaving. Because I have not been unable to convince the patient to stay, I answered all of her questions about the condition and asked her to return to the ED as soon as possible to complete her evaluation, especially if her symptoms worsen or do not improve. I emphasized that leaving AGAINST MEDICAL ADVICE does not preclude returning here for further evaluation. I asked the patient to return if if she changes her mind about further evaluation, transfer, and treatment. Strongly encouraged the patient to return to the ED or any ED at any time, particularly with worsening symptoms. Given possible clinical concern for pellagra, will provide patient with RX for Niacin. Discussed the importance for follow-up with a neurologist and primary care provider as soon as possible. Diagnostics: CBC, CMP, UA, CRP, ESR, TSH, angiography head CT and neck, EKG, troponin, chest x-ray Therapeutics: Niacin Prescription: Niacin Impression: Binocular diplopia Dermatitis, possible pellagra Left ED Against Medical Advice Plan: Patient left the ED AGAINST MEDICAL ADVICE Definitive disposition and diagnosis as appropriate pending reevaluation and review of above. - Related Data Allergies Allergy/AdvReac Type Severity Reaction Status Date / Time promethazine [From Phenergan] Allergy Other Verified 08/26/20 17:43 Home Meds: Home Meds Niacin 250 mg PO TID 5 Days #15 tablet 08/26/20 [Rx] Past Medical History HEENT History: Reports: None Cardiovascular History: Reports: None Respiratory History: Reports: None Gastrointestinal History: Reports: None Genitourinary History: Reports: None PHYSICIAN INDUSTRIAL History: Reports: None Musculoskeletal History: Reports: Fibromyalgia, SLE, Other (See Below) Other Musculoskeletal History: hip dysplasia, buldging disc Neurological History: Reports: None Psychiatric History: Reports: None Endocrine/Metabolic History: Reports: None Insulin Pump Model and Soccer Coach: N/A Hematologic History: Reports: None Immunologic History: Reports: None Oncologic (Cancer) History: Reports: None Dermatologic History: Reports: None - Infectious Disease History Infectious Disease History: Reports: Chicken Pox, Mumps, Other (See Below) Other Infectious Disease History: childhood - Past Surgical History Head Surgeries/Procedures: Reports: None HEENT Surgical History: Reports: None Cardiovascular Surgical History: Reports: None Respiratory Surgical History: Reports: None GI Surgical History: Reports: None Female Surgical History: Reports: None Endocrine Surgical History: Reports: None Neurological Surgical History: Reports: None Musculoskeletal Surgical History: Reports: None Oncologic Surgical History: Reports: None Dermatological Surgical History: Reports: None Social & Family History - Family History Family Medical History: No Pertinent Family History Cardiac: Reports: Other (See Below) Other Cardiac Family History: States father have cardiac issues - Tobacco Use Tobacco Use Status *Q: Current Every Day Tobacco User Years of Tobacco use: 35 Packs/Tins Daily: 0.2 - Caffeine Use Caffeine Use: Reports: None - Alcohol Use Days Per Week of Alcohol Use: 2 Number of Drinks Per Day: 1 Total Drinks Per Week: 2 - Recreational Drug Use Recreational Drug Use: No ED ROS GENERAL - Review of Systems Review Of Systems: Comprehensive ROS is negative, except as noted in HPI. ED EXAM, GENERAL - Physical Exam Exam: See Below (see dictation) Course - Vital Signs Last Recorded V/S: Last Vital Signs Temp 98.4 F 08/26/20 18:36 Pulse 78 08/26/20 18:36 Resp 20 08/26/20 18:36 BP 112/72 08/26/20 18:36 Pulse Ox 97 08/26/20 18:36 - Orders/Labs/Meds Orders: Active Orders 24 hr Category Date Time Status UA RFX MAULIK AND CULT IF INDIC [URIN] Stat Lab 08/26/20 18:22 Ordered VITAMIN B2, WHOLE BLOOD [REF] Stat Lab 08/26/20 20:17 Stop Req Saline Lock Insert [OM.PC] Stat Oth 08/26/20 18:21 Ordered Labs: Laboratory Tests 08/26/20 08/26/20 08/26/20 Range/Units 18:35 18:35 18:35 WBC 4.15 (4.0-11.0) K/uL RBC 3.03 L (4.30-5.90) M/uL Hgb 10.7 L (12.0-16.0) g/dL Hct 30.6 L (36.0-46.0) % MCV 101.0 H (80.0-98.0) fL MCH 35.3 H (27.0-32.0) pg MCHC 35.0 (31.0-37.0) g/dL RDW Std Deviation 64.5 H (28.0-62.0) fl RDW Coeff of Stephanie 18 H (11.0-15.0) % Plt Count 170 (150-400) K/uL MPV 10.30 (7.40-12.00) fL Neut % (Auto) 65.6 (48.0-80.0) % Lymph % (Auto) 27.0 (16.0-40.0) % Adams % (Auto) 7.2 (0.0-15.0) % Eos % (Auto) 0.0 (0.0-7.0) % Baso % (Auto) 0.2 (0.0-1.5) % Neut # (Auto) 2.7 (1.4-5.7) K/uL Lymph # (Auto) 1.1 (0.6-2.4) K/uL Adams # (Auto) 0.3 (0.0-0.8) K/uL Eos # (Auto) 0.0 (0.0-0.7) K/uL Baso # (Auto) 0.0 (0.0-0.1) K/uL Nucleated RBC % 0.0 /100WBC Nucleated RBCs # 0 K/uL ESR (0-29) mm/hr INR 1.06 APTT (18.6-31.3) SEC Sodium 138 (136-145) mmol/L Potassium 3.9 (3.5-5.1) mmol/L Chloride 101 (98-107) mmol/L Carbon Dioxide 25.3 (21.0-32.0) mmol/L BUN 8 (7.0-18.0) mg/dL Creatinine 1.0 (0.6-1.0) mg/dL Est Cr Clr Drug Dosing 64.72 mL/min Estimated GFR (MDRD) 58.5 ml/min Glucose 97 (74-106) mg/dL Calcium 8.9 (8.5-10.1) mg/dL Total Bilirubin 2.2 H (0.2-1.0) mg/dL AST 95 H (15-37) IU/L ALT 34 (14-63) IU/L Alkaline Phosphatase 144 H (46-116) U/L Troponin I < 0.050 (0.000-0.056) ng/mL C-Reactive Protein (0.00-0.90) mg/dL Total Protein 6.5 (6.4-8.2) g/dL Albumin 2.8 L (3.4-5.0) g/dL Globulin 3.7 (2.6-4.0) g/dL Albumin/Globulin Ratio 0.8 L (0.9-1.6) TSH 3rd Generation 2.12 (0.36-3.74) uIU/mL 08/26/20 08/26/20 08/26/20 Range/Units 18:35 18:35 18:35 WBC (4.0-11.0) K/uL RBC (4.30-5.90) M/uL Hgb (12.0-16.0) g/dL Hct (36.0-46.0) % MCV (80.0-98.0) fL MCH (27.0-32.0) pg MCHC (31.0-37.0) g/dL RDW Std Deviation (28.0-62.0) fl RDW Coeff of Stephanie (11.0-15.0) % Plt Count (150-400) K/uL MPV (7.40-12.00) fL Neut % (Auto) (48.0-80.0) % Lymph % (Auto) (16.0-40.0) % Adams % (Auto) (0.0-15.0) % Eos % (Auto) (0.0-7.0) % Baso % (Auto) (0.0-1.5) % Neut # (Auto) (1.4-5.7) K/uL Lymph # (Auto) (0.6-2.4) K/uL Adams # (Auto) (0.0-0.8) K/uL Eos # (Auto) (0.0-0.7) K/uL Baso # (Auto) (0.0-0.1) K/uL Nucleated RBC % /100WBC Nucleated RBCs # K/uL ESR 16 (0-29) mm/hr INR APTT 21.7 (18.6-31.3) SEC Sodium (136-145) mmol/L Potassium (3.5-5.1) mmol/L Chloride (98-107) mmol/L Carbon Dioxide (21.0-32.0) mmol/L BUN (7.0-18.0) mg/dL Creatinine (0.6-1.0) mg/dL Est Cr Clr Drug Dosing mL/min Estimated GFR (MDRD) ml/min Glucose (74-106) mg/dL Calcium (8.5-10.1) mg/dL Total Bilirubin (0.2-1.0) mg/dL AST (15-37) IU/L ALT (14-63) IU/L Alkaline Phosphatase (46-116) U/L Troponin I (0.000-0.056) ng/mL C-Reactive Protein < 0.20 (0.00-0.90) mg/dL Total Protein (6.4-8.2) g/dL Albumin (3.4-5.0) g/dL Globulin (2.6-4.0) g/dL Albumin/Globulin Ratio (0.9-1.6) TSH 3rd Generation (0.36-3.74) uIU/mL Meds: Medications Discontinued Medications Generic Name Dose Route Start Last Admin Trade Name Freq PRN Reason Stop Dose Admin Iopamidol 100 ml 08/26/20 19:42 08/26/20 19:43 Iopamidol 755 Mg/Ml 500 Ml Multipack Bottle IVPUSH 08/26/20 19:43 100 ml ONETIME STA Administration Niacin 100 mg 08/26/20 19:38 08/26/20 20:01 Niacin 500 Mg Tab PO 08/26/20 19:39 Not Given NOW STA Niacin 250 mg 08/26/20 19:50 08/26/20 20:03 Niacin 500 Mg Tab PO 08/26/20 19:51 250 mg NOW STA Administration Sodium Chloride 10 ml 08/26/20 18:21 08/26/20 20:05 Sodium Chloride 0.9% 10 Ml Syringe FLUSH 10 ml ASDIRECTED PRN Administration Keep Vein Open Sodium Chloride 2.5 ml 08/26/20 18:21 08/26/20 20:05 Sodium Chloride 0.9% 2.5 Ml Syringe FLUSH 2.5 ml ASDIRECTED PRN Administration Keep Vein Open Departure - Departure Time of Disposition: 21:54 Disposition: Against Medical Advice 07 Clinical Impression: Binocular vision disorder with diplopia, Left against medical advice - Discharge Information Prescriptions: Niacin 250 mg PO TID 5 Days #15 tablet Instructions: Diplopia, Visual Disturbances Referrals: Lamar Gomez MD [Physician] - PCP,None [Primary Care Provider] - Forms: ED Department Discharge Additional Instructions: The following information is given to patients seen in the emergency department who are being discharged to home. This information is to outline your options for follow-up care. We provide all patients seen in our emergency department with a follow-up referral. The need for follow-up, as well as the timing and circumstances, are variable depending upon the specifics of your emergency department visit. If you don't have a primary care physician on staff, we will provide you with a referral. We always advise you to contact your personal physician following an emergency department visit to inform them of the circumstance of the visit and for follow-up with them and/or the need for any referrals to a consulting specialist. The emergency department will also refer you to a specialist when appropriate. This referral assures that you have the opportunity for follow-up care with a specialist. All of these measure are taken in an effort to provide you with optimal care, which includes your follow-up. Under all circumstances we always encourage you to contact your private physician who remains a resource for coordinating your care. When calling for follow-up care, please make the office aware that this follow-up is from your recent emergency room visit. If for any reason you are refused follow-up, please contact the [facility] at and asked to speak to the emergency department charge nurse. [facility] [address] [place] [address] [facility] [address] [place] [id number] [facility] - Neurology Professional Building [address] [facility], [address] [place] [address] 1. Take medication as prescribed. Follow up with a neurologist and primary care provider as discussed. Return to the ED as needed and as discussed. I encourage you to return to complete evaluation and be seen by neurology as discussed. You are welcome to come back if you change your mind. Sepsis Event Note (ED) - Evaluation Sepsis Screening Result: No Definite Risk - Focused Exam Vital Signs: Vital Signs Temp Pulse Resp BP Pulse Ox 08/26/20 18:36 98.4 F 78 20 112/72 97 08/26/20 17:40 97.8 F 84 18 115/76 98 - My Orders Last 24 Hours: My Active Orders 08/26/20 18:21 Saline Lock Insert [OM.PC] Stat 08/26/20 18:22 UA RFX MAULIK AND CULT IF INDIC [URIN] Stat 08/26/20 20:17 VITAMIN B2, WHOLE BLOOD [REF] Stat - Assessment/Plan Last 24 Hours: My Active Orders 08/26/20 18:21 Saline Lock Insert [OM.PC] Stat 08/26/20 18:22 UA RFX MAULIK AND CULT IF INDIC [URIN] Stat 08/26/20 20:17 VITAMIN B2, WHOLE BLOOD [REF] Stat
--- NOTE | 2020-08-26 20:22 | CT ---
DATE: 08/26/2020 CLINICAL HISTORY: Patient with binocular diplopia TECHNIQUE: Standard helical CT image acquisition through the head and neck was performed after intravenous contrast bolus enhancement. Multiplanar reconstructed images were performed and interpreted. COMPARISON: None. FINDINGS: The origins of the great vessels from the aortic arch are patent. The origin of the right vertebral artery is patent. The origin of the left vertebral artery is patent. The common carotid arteries are patent There is no stenosis at the origin of the right internal carotid artery. There is no stenosis at the origin of the left internal carotid artery. The rest of the cervical segments of the internal carotid arteries are patent up to their intracranial segments. The intracranial segments of the internal carotid arteries are patent. The left vertebral artery is dominant. The cervical segments of the vertebral arteries are patent. The intracranial segments of the vertebral arteries are patent. The middle cerebral arteries are normal without aneurysm or proximal occlusion identified. The anterior cerebral arteries are normal without aneurysm or proximal occlusion identified. The anterior communicating artery is well visualized and appears normal. The basilar artery is normal without aneurysm or occlusion. The posterior cerebral arteries are normal without aneurysm or proximal occlusion. There is normal opacification of major intracranial venous structures. The visualized lung apices are unremarkable The thyroid gland is unremarkable. The soft tissues of the neck are unremarkable. There are degenerative changes in the cervical spine. IMPRESSION: Normal CT angiogram of the head and neck. Please note that all CT scans at this facility use dose modulation, iterative reconstruction, and/or weight-based dosing when appropriate to reduce radiation dose to as low as reasonably achievable. Dictated by Robe Law MD @ 08/26/2020 8:28:[address] Robe Law @ Aug 26 2020 8:28PM
--- NOTE | 2020-08-26 20:59 | CR ---
INDICATION: Diplopia TECHNIQUE: Chest, one view COMPARISON: Chest x-ray 07/02/2020 FINDINGS: The heart is normal in size. Pulmonary vasculature is within normal limits. The lungs are clear. IMPRESSION: No acute process. Dictated by Traci Purdy MD @ 08/26/2020 8:57:[address] Traci Purdy @ Aug 26 2020 8:57PM
== END 2020-08-26 21:54 | disposition left against medical advice (07) ==
LOC: MW.ED 16:52
DX: H53.2 Diplopia (principal); L30.9 Dermatitis, unspecified; Z72.0 Tobacco use; Z88.8 Allergy status to other drugs, medicaments and biological substances
CPT/HCPCS: 36415; 70496; 70498; 71045; 80053; 84252; 84443; 84484; 85025; 85610; 85652; 85730; 86140; 93005; 99284; A9270; Q9967

== ENCOUNTER 2020-08-27 16:39 | Emergency (ER) | payer MEDICAID ==
--- NOTE | 2020-08-27 17:03 | EDM.PDOC ---
ED HPI GENERAL MEDICAL PROBLEM - General Chief Complaint: Allergic Reaction Stated Complaint: WEAKNESS Time Seen by Provider: 08/27/20 17:00 Source of Information: Reports: Patient, Old Records History Limitations: Reports: No Limitations, Intoxication - History of Present Illness INITIAL COMMENTS - FREE TEXT/NARRATIVE: Patient is a 49-year-old female who presents today for multiple complaints. Patient has been seen in the past few days and at one point thought she may have pellagra from possible niacin deficiency. Patient has rashes to her left lower extremity and arm. She states also she has been having some change in vision is been feeling dizzy and tired. She patient was going to be transferred to [facility] for MRI and neurology consult but AMA yesterday. Today she presents with the same symptoms. Patient does have some smell of alcohol states she has not had a drink since yesterday. She denies any headaches altered mental status or numbness tingling her extremities but still has is blurry vision. Foot Pain Score (Numeric/FACES): 6 - Related Data Allergies Allergy/AdvReac Type Severity Reaction Status Date / Time promethazine [From Phenergan] Allergy Other Verified 08/26/20 17:43 Home Meds: Home Meds Niacin 250 mg PO TID 5 Days #15 tablet 08/26/20 [Rx] Past Medical History HEENT History: Reports: None Cardiovascular History: Reports: None Respiratory History: Reports: None Gastrointestinal History: Reports: None Genitourinary History: Reports: None CHEMISTRY ASSOCIATE History: Reports: None Musculoskeletal History: Reports: Fibromyalgia, SLE, Other (See Below) Other Musculoskeletal History: hip dysplasia, buldging disc Neurological History: Reports: None Psychiatric History: Reports: None Endocrine/Metabolic History: Reports: None Insulin Pump Model and Nurse Private Duty: N/A Hematologic History: Reports: None Immunologic History: Reports: None Oncologic (Cancer) History: Reports: None Dermatologic History: Reports: None - Infectious Disease History Infectious Disease History: Reports: Chicken Pox, Mumps, Other (See Below) Other Infectious Disease History: childhood - Past Surgical History Head Surgeries/Procedures: Reports: None HEENT Surgical History: Reports: None Cardiovascular Surgical History: Reports: None Respiratory Surgical History: Reports: None GI Surgical History: Reports: None Female Surgical History: Reports: None Endocrine Surgical History: Reports: None Neurological Surgical History: Reports: None Musculoskeletal Surgical History: Reports: None Oncologic Surgical History: Reports: None Dermatological Surgical History: Reports: None Social & Family History - Family History Family Medical History: No Pertinent Family History Cardiac: Reports: Other (See Below) Other Cardiac Family History: States father have cardiac issues - Caffeine Use Caffeine Use: Reports: None ED ROS GENERAL - Review of Systems Review Of Systems: See Below Constitutional: Reports: Weakness HEENT: Reports: No Symptoms Respiratory: Reports: No Symptoms Cardiovascular: Reports: No Symptoms Endocrine: Reports: No Symptoms GI/Abdominal: Reports: No Symptoms : Reports: No Symptoms Musculoskeletal: Reports: No Symptoms Skin: Reports: No Symptoms Neurological: Reports: Other (Vision changes) Psychiatric: Reports: No Symptoms Hematologic/Lymphatic: Reports: No Symptoms Immunologic: Reports: No Symptoms ED EXAM, GENERAL - Physical Exam Exam: See Below Exam Limited By: Intoxication General Appearance: Alert Eye Exam: Bilateral Eye: EOMI, PERRL Head: Atraumatic Respiratory/Chest: No Respiratory Distress, Lungs Clear Cardiovascular: Normal Peripheral Pulses, Regular Rate, Rhythm GI/Abdominal: Normal Bowel Sounds, Soft, Non-Tender Neurological: Alert, Oriented Skin Exam: Rash, Other (Pelvis to the left lateral side of the foot rest of the bilateral hands and on the left knee.) Course - Vital Signs Last Recorded V/S: Last Vital Signs Temp 97.0 F 08/27/20 16:48 Pulse 100 08/27/20 16:48 Resp 18 08/27/20 16:48 BP 118/78 08/27/20 16:48 Pulse Ox 100 08/27/20 16:48 - Orders/Labs/Meds Orders: Active Orders 24 hr Category Date Time Status DRUG SCREEN, URINE [URCHEM] Stat Lab 08/27/20 Ordered Labs: Laboratory Tests 08/27/20 08/27/20 Range/Units 17:47 17:47 WBC 3.94 L (4.0-11.0) K/uL RBC 2.97 L (4.30-5.90) M/uL Hgb 10.4 L (12.0-16.0) g/dL Hct 30.1 L (36.0-46.0) % MCV 101.3 H (80.0-98.0) fL MCH 35.0 H (27.0-32.0) pg MCHC 34.6 (31.0-37.0) g/dL RDW Std Deviation 63.4 H (28.0-62.0) fl RDW Coeff of Stephanie 17 H (11.0-15.0) % Plt Count 169 (150-400) K/uL MPV 10.60 (7.40-12.00) fL Neut % (Auto) 73.5 (48.0-80.0) % Lymph % (Auto) 18.8 (16.0-40.0) % [place] % (Auto) 7.1 (0.0-15.0) % Eos % (Auto) 0.3 (0.0-7.0) % Baso % (Auto) 0.3 (0.0-1.5) % Neut # (Auto) 2.9 (1.4-5.7) K/uL Lymph # (Auto) 0.7 (0.6-2.4) K/uL [place] # (Auto) 0.3 (0.0-0.8) K/uL Eos # (Auto) 0.0 (0.0-0.7) K/uL Baso # (Auto) 0.0 (0.0-0.1) K/uL Nucleated RBC % 0.0 /100WBC Nucleated RBCs # 0 K/uL Sodium 139 (136-145) mmol/L Potassium 3.8 (3.5-5.1) mmol/L Chloride 102 (98-107) mmol/L Carbon Dioxide 24.7 (21.0-32.0) mmol/L BUN 8 (7.0-18.0) mg/dL Creatinine 0.9 (0.6-1.0) mg/dL Est Cr Clr Drug Dosing 71.91 mL/min Estimated GFR (MDRD) > 60.0 ml/min Glucose 85 (74-106) mg/dL Calcium 8.7 (8.5-10.1) mg/dL Phosphorus 3.9 (2.6-4.7) mg/dL Magnesium 1.7 L (1.8-2.4) mg/dL Total Bilirubin 2.0 H (0.2-1.0) mg/dL AST 99 H (15-37) IU/L ALT 34 (14-63) IU/L Alkaline Phosphatase 144 H (46-116) U/L Creatine Kinase 18 L (26-308) U/L Total Protein 6.6 (6.4-8.2) g/dL Albumin 2.9 L (3.4-5.0) g/dL Globulin 3.7 (2.6-4.0) g/dL Albumin/Globulin Ratio 0.8 L (0.9-1.6) Lipase 17 L (73-393) U/L Ethyl Alcohol <3 mg/dL Meds: Medications Discontinued Medications Generic Name Dose Route Start Last Admin Trade Name Charlene PRN Reason Stop Dose Admin Methylprednisolone Sodium Succinate 125 mg 08/27/20 17:12 08/27/20 17:29 Methylprednisolone Sodium Succinate 125 Mg/2 Ml Sdv IVPUSH 08/27/20 17:13 125 mg ONETIME ONE Administration - Re-Assessments/Exams Free Text/Narrative Re-Assessment/Exam: 08/27/20 18:58 Patient will be sent home on steroids and will see dermatology tomorrow. Patient is continue to take her niacin prescription was given by previous provider. Patient stable for discharge. Patient vision is at baseline has no vision complaints today. Departure - Departure Time of Disposition: 18:59 Disposition: Home, Self-Care 01 Condition: Fair Clinical Impression: Dermatitis - Discharge Information *PRESCRIPTION DRUG MONITORING PROGRAM REVIEWED*: Not Applicable *COPY OF PRESCRIPTION DRUG MONITORING REPORT IN PATIENT IRMA: Not Applicable Instructions: Eczema Forms: ED Department Discharge Additional Instructions: The following information is given to patients seen in the emergency department who are being discharged to home. This information is to outline your options for follow-up care. We provide all patients seen in our emergency department with a follow-up referral. The need for follow-up, as well as the timing and circumstances, are variable depending upon the specifics of your emergency department visit. If you don't have a primary care physician on staff, we will provide you with a referral. We always advise you to contact your personal physician following an emergency department visit to inform them of the circumstance of the visit and for follow-up with them and/or the need for any referrals to a consulting specialist. The emergency department will also refer you to a specialist when appropriate. This referral assures that you have the opportunity for follow-up care with a specialist. All of these measure are taken in an effort to provide you with optimal care, which includes your follow-up. Under all circumstances we always encourage you to contact your private physician who remains a resource for coordinating your care. When calling for follow-up care, please make the office aware that this follow-up is from your recent emergency room visit. If for any reason you are refused follow-up, please contact the [facility] Emergency Department at and asked to speak to the emergency department charge nurse. Please follow up with your primary care physician. If you do not have a primary care physician, see below: Dr. Bernabe Craft [facility] [address] [place] [address] You were seen today for rash that we are unsure what it is. My previous colleague believe you have pelegra which he placed on niacin we recommend continuing to take. Also gave you steroids to treat a possible allergic reaction. Above the number to vending machine repairer we wanted to see this week. We j luis l attempt to have you see the vending machine repairer this week. Please make she canceled her phone and he cannot be reached by please call the number above for appointment. For renal concerning signs symptoms please return to the ED. Sepsis Event Note (ED) - Evaluation Sepsis Screening Result: No Definite Risk - Focused Exam Vital Signs: Vital Signs Temp Pulse Resp BP Pulse Ox 08/27/20 16:48 97.0 F 100 18 118/78 100 - My Orders Last 24 Hours: My Active Orders 08/27/20 DRUG SCREEN, URINE [URCHEM] Stat - Assessment/Plan Last 24 Hours: My Active Orders 08/27/20 DRUG SCREEN, URINE [URCHEM] Stat Plan: Patient is a 49-year-old female presents today for rashes to her lower extremities as well as some change in vision as well. Unclear cause of the symptoms. Will give some Solu-Medrol for possible allergic reaction and will get CT scan head to rule out any strokes or other symptoms.
[2020-08-27] MEDS ORDERED: methylPREDNISolone Sodium Succinate 125 MG/2 ML SDV IVPUSH ONE (17:12)
--- NOTE | 2020-08-27 17:56 | CT ---
INDICATION: Change in vision. Dizziness. TECHNIQUE: Noncontrast CT images were acquired through the brain. COMPARISON: CTA head and neck 08/26/2020. FINDINGS: Artifact mildly degrades image quality. Prominence of the ventricles and sulci compatible with mild diffuse cerebral volume loss. No mass effect or midline shift. The sanchez-white differentiation is maintained. No acute intracranial hemorrhage or pathologic extra-axial fluid collection. The globes are symmetric. The calvarium is intact. The paranasal sinuses and mastoid air cells are clear. IMPRESSION: 1. No acute intracranial hemorrhage or mass effect. 2. Mild diffuse cerebral volume loss. Please note that all CT scans at this facility use dose modulation, iterative reconstruction, and/or weight-based dosing when appropriate to reduce radiation dose to as low as reasonably achievable. Dictated by Domenico Perea MD @ 08/27/2020 5:54:[address] Domenico Perea @ Aug 27 2020 5:54PM
[2020-08-27 18:24] LABS: BLOOD UREA NITROGEN,BUN 8 mg/dL (7.0-18.0); CARBON DIOXIDE,CO2 24.7 mmol/L (21.0-32.0); CHLORIDE,CL 102 mmol/L (98-107); GLUCOSE RANDOM 85 mg/dL (74-106); LIPASE 17 U/L (73-393); POTASSIUM,K 3.8 mmol/L (3.5-5.1); SODIUM,NA 139 mmol/L (136-145)
== END 2020-08-27 19:21 | disposition home or self-care (01) ==
LOC: MW.ED 16:39
DX: L30.9 Dermatitis, unspecified (principal); Z88.8 Allergy status to other drugs, medicaments and biological substances
CPT/HCPCS: 36415; 70450; 80053; 80307; 82550; 83690; 83735; 84100; 85025; 96374; 99284; J2930

== ENCOUNTER 2020-08-29 08:52 | Emergency (ER) | payer MEDICAID ==
--- NOTE | 2020-08-29 09:42 | EDM.PDOC ---
ED HPI GENERAL MEDICAL PROBLEM - General Chief Complaint: Skin Complaint Stated Complaint: BACK PAIN Time Seen by Provider: 08/29/20 08:54 Source of Information: Reports: Patient History Limitations: Reports: No Limitations - History of Present Illness INITIAL COMMENTS - FREE TEXT/NARRATIVE: Patient is a 49-year-old female who presents today for rashes to her lower extremities and also patient sisters at bedside and feels like she is becoming more decompensated. She is a everyday drinker but patient sister states that sometimes she looks at her sister and states that her right eye sometimes tripped and work and sometimes she slurs her words and is typically walking. Currently patient is not having no symptoms eyes are straight speech is clear. Patient at times also does seem confused. Patient's been seen here back in June and also 3 times this month as well. Patient was to be transferred from my not but refused at that time. Patient has CTAs of head and neck. I also done a CT head on this patient. A colleague of mine is also patient may have had a pellagra and prescribed her niacin. I also felt the rash may be contact dermatitis and gave her steroids which she did not take. Patient has not been following up with taking recommendations there is been given to her by multiple providers and has continuously refused admission or transferred. We continue to ask patient how we can help her today she states she does know we are unsure why she leaves and return to the ER. Back Pain Score (Numeric/FACES): 6 - Related Data Allergies Allergy/AdvReac Type Severity Reaction Status Date / Time promethazine [From Phenergan] Allergy Other Verified 08/29/20 08:54 Home Meds: Home Meds . [No Known Home Meds] 08/29/20 [History] Past Medical History HEENT History: Reports: Impaired Vision Cardiovascular History: Reports: None Respiratory History: Reports: None Gastrointestinal History: Reports: None Genitourinary History: Reports: None PURCHASING OFFICER History: Reports: None Musculoskeletal History: Reports: Fibromyalgia, SLE, Other (See Below) Other Musculoskeletal History: hip dysplasia, buldging disc Neurological History: Reports: None Psychiatric History: Reports: None Endocrine/Metabolic History: Reports: Diabetes, Type II Insulin Pump Model and Digital Art Director: N/A Hematologic History: Reports: None Immunologic History: Reports: None Oncologic (Cancer) History: Reports: None Dermatologic History: Reports: None - Infectious Disease History Infectious Disease History: Reports: Chicken Pox, Mumps, Other (See Below) Other Infectious Disease History: childhood - Past Surgical History Head Surgeries/Procedures: Reports: None HEENT Surgical History: Reports: None Cardiovascular Surgical History: Reports: None Respiratory Surgical History: Reports: None GI Surgical History: Reports: None Female Surgical History: Reports: None Endocrine Surgical History: Reports: None Neurological Surgical History: Reports: None Musculoskeletal Surgical History: Reports: None Oncologic Surgical History: Reports: None Dermatological Surgical History: Reports: None Social & Family History - Family History Family Medical History: No Pertinent Family History Cardiac: Reports: Other (See Below) Other Cardiac Family History: States father have cardiac issues - Caffeine Use Caffeine Use: Reports: Coffee - Recreational Drug Use Recreational Drug Use: No ED ROS GENERAL - Review of Systems Review Of Systems: See Below Constitutional: Reports: No Symptoms HEENT: Reports: No Symptoms Respiratory: Reports: No Symptoms Cardiovascular: Reports: No Symptoms Endocrine: Reports: No Symptoms GI/Abdominal: Reports: No Symptoms : Reports: No Symptoms Musculoskeletal: Reports: No Symptoms Skin: Reports: Rash Neurological: Reports: No Symptoms Psychiatric: Reports: No Symptoms Hematologic/Lymphatic: Reports: No Symptoms Immunologic: Reports: No Symptoms ED EXAM, GENERAL - Physical Exam Exam: See Below Exam Limited By: No Limitations General Appearance: Alert, No Apparent Distress Eye Exam: Bilateral Eye: EOMI, PERRL Respiratory/Chest: No Respiratory Distress, Lungs Clear, Normal Breath Sounds Cardiovascular: Normal Peripheral Pulses, Regular Rate, Rhythm GI/Abdominal: Normal Bowel Sounds, Soft, Non-Tender Extremities: Normal Inspection Neurological: Alert, Oriented, CN II-XII Intact Course - Vital Signs Last Recorded V/S: Last Vital Signs Temp 97.4 F 08/29/20 08:54 Pulse 86 08/29/20 13:42 Resp 16 08/29/20 13:42 BP 115/91 H 08/29/20 13:42 Pulse Ox 100 08/29/20 13:42 - Orders/Labs/Meds Orders: Active Orders 24 hr Category Date Time Status Sodium Chloride 0.9% [Normal Saline] 1,000 ml Med 08/29/20 11:00 Active IV ASDIRECTED Medication Orders Folic Acid (Folic Acid 50 Mg/10 Ml Mdv) 1 mg SUBCUT DAILY ALEXI Sodium Chloride (Normal Saline) 1,000 mls @ 1,000 mls/hr IV ASDIRECTED ALEXI Last Admin: 08/29/20 12:41 Dose: 1,000 mls/hr Documented by: MURKAYLEEIC Thiamine HCl 500 mg/ Sodium (Chloride) 255 mls @ 510 mls/hr IV Q8H ALEXI Lactated Ringer's (Ringers, Lactated) 1,000 mls @ 150 mls/hr IV Q6HR ALEXI Lorazepam (Lorazepam 2 Mg/Ml Sdv) 0 mg IVPUSH Q4H PRN; Protocol PRN Reason: CIWAA Ondansetron HCl (Ondansetron 4 Mg/2 Ml Sdv) 4 mg IVPUSH Q4H PRN PRN Reason: Nausea Sodium Chloride (Sodium Chloride 0.9% 2.5 Ml Syringe) 2.5 ml FLUSH ASDIRECTED PRN PRN Reason: Keep Vein Open Labs: Laboratory Tests 08/29/20 08/29/20 08/29/20 Range/Units 09:31 09:31 09:31 WBC 8.28 (4.0-11.0) K/uL RBC 2.94 L (4.30-5.90) M/uL Hgb 10.3 L (12.0-16.0) g/dL Hct 29.7 L (36.0-46.0) % MCV 101.0 H (80.0-98.0) fL MCH 35.0 H (27.0-32.0) pg MCHC 34.7 (31.0-37.0) g/dL RDW Std Deviation 64.1 H (28.0-62.0) fl RDW Coeff of Stephanie 17 H (11.0-15.0) % Plt Count 185 (150-400) K/uL MPV 9.70 (7.40-12.00) fL Neut % (Auto) 81.0 H (48.0-80.0) % Lymph % (Auto) 9.8 L (16.0-40.0) % [place] % (Auto) 9.1 (0.0-15.0) % Eos % (Auto) 0.0 (0.0-7.0) % Baso % (Auto) 0.1 (0.0-1.5) % Neut # (Auto) 6.7 H (1.4-5.7) K/uL Lymph # (Auto) 0.8 (0.6-2.4) K/uL [place] # (Auto) 0.8 (0.0-0.8) K/uL Eos # (Auto) 0.0 (0.0-0.7) K/uL Baso # (Auto) 0.0 (0.0-0.1) K/uL Nucleated RBC % 0.0 /100WBC Nucleated RBCs # 0 K/uL Sodium 135 L (136-145) mmol/L Potassium 4.4 (3.5-5.1) mmol/L Chloride 98 (98-107) mmol/L Carbon Dioxide 24.4 (21.0-32.0) mmol/L BUN 15 (7.0-18.0) mg/dL Creatinine 1.3 H (0.6-1.0) mg/dL Est Cr Clr Drug Dosing 49.49 mL/min Estimated GFR (MDRD) 43.2 ml/min Glucose 106 (74-106) mg/dL Lactic Acid 3.3 H* (0.4-2.0) mmol/L Calcium 9.5 (8.5-10.1) mg/dL Phosphorus 3.0 (2.6-4.7) mg/dL Magnesium 1.6 L (1.8-2.4) mg/dL Total Bilirubin 2.5 H (0.2-1.0) mg/dL AST 95 H (15-37) IU/L ALT 36 (14-63) IU/L Alkaline Phosphatase 145 H (46-116) U/L Ammonia (19-54) ug/dL Total Protein 6.7 (6.4-8.2) g/dL Albumin 3.0 L (3.4-5.0) g/dL Globulin 3.7 (2.6-4.0) g/dL Albumin/Globulin Ratio 0.8 L (0.9-1.6) Lipase 30 L (73-393) U/L Ethyl Alcohol < 3.0 mg/dL 08/29/20 Range/Units 09:31 WBC (4.0-11.0) K/uL RBC (4.30-5.90) M/uL Hgb (12.0-16.0) g/dL Hct (36.0-46.0) % MCV (80.0-98.0) fL MCH (27.0-32.0) pg MCHC (31.0-37.0) g/dL RDW Std Deviation (28.0-62.0) fl RDW Coeff of Stephanie (11.0-15.0) % Plt Count (150-400) K/uL MPV (7.40-12.00) fL Neut % (Auto) (48.0-80.0) % Lymph % (Auto) (16.0-40.0) % [place] % (Auto) (0.0-15.0) % Eos % (Auto) (0.0-7.0) % Baso % (Auto) (0.0-1.5) % Neut # (Auto) (1.4-5.7) K/uL Lymph # (Auto) (0.6-2.4) K/uL [place] # (Auto) (0.0-0.8) K/uL Eos # (Auto) (0.0-0.7) K/uL Baso # (Auto) (0.0-0.1) K/uL Nucleated RBC % /100WBC Nucleated RBCs # K/uL Sodium (136-145) mmol/L Potassium (3.5-5.1) mmol/L Chloride (98-107) mmol/L Carbon Dioxide (21.0-32.0) mmol/L BUN (7.0-18.0) mg/dL Creatinine (0.6-1.0) mg/dL Est Cr Clr Drug Dosing mL/min Estimated GFR (MDRD) ml/min Glucose (74-106) mg/dL Lactic Acid (0.4-2.0) mmol/L Calcium (8.5-10.1) mg/dL Phosphorus (2.6-4.7) mg/dL Magnesium (1.8-2.4) mg/dL Total Bilirubin (0.2-1.0) mg/dL AST (15-37) IU/L ALT (14-63) IU/L Alkaline Phosphatase (46-116) U/L Ammonia < 17 L (19-54) ug/dL Total Protein (6.4-8.2) g/dL Albumin (3.4-5.0) g/dL Globulin (2.6-4.0) g/dL Albumin/Globulin Ratio (0.9-1.6) Lipase (73-393) U/L Ethyl Alcohol mg/dL Meds: Medications Generic Name Dose Route Start Last Admin Trade Name Charlene PRN Reason Stop Dose Admin Folic Acid 1 mg 08/30/20 09:00 Folic Acid 50 Mg/10 Ml Mdv SUBCUT DAILY ALEXI Sodium Chloride 1,000 mls @ 1,000 mls/hr 08/29/20 11:00 08/29/20 12:41 Normal Saline IV 1,000 mls/hr ASDIRECTED ALEXI Administration Thiamine HCl 500 mg/ Sodium 255 mls @ 510 mls/hr 08/29/20 20:00 Chloride IV Q8H ALEXI Lactated Ringer's 1,000 mls @ 150 mls/hr 08/29/20 13:06 Ringers, Lactated IV Q6HR ALEXI Lorazepam 0 mg 08/29/20 13:04 Lorazepam 2 Mg/Ml Sdv IVPUSH Q4H PRN CIWAA Protocol Ondansetron HCl 4 mg 08/29/20 13:01 Ondansetron 4 Mg/2 Ml Sdv IVPUSH Q4H PRN Nausea Sodium Chloride 2.5 ml 08/29/20 13:01 Sodium Chloride 0.9% 2.5 Ml Syringe FLUSH ASDIRECTED PRN Keep Vein Open Discontinued Medications Generic Name Dose Route Start Last Admin Trade Name Charlene PRN Reason Stop Dose Admin Folic Acid 1 mg 08/29/20 10:36 08/29/20 12:42 Folic Acid 1 Mg Tab PO 08/29/20 10:37 1 mg ONETIME ONE Administration Thiamine HCl 500 mg/ Sodium 255 mls @ 255 mls/hr 08/29/20 11:30 08/29/20 12:42 Chloride IV 08/29/20 12:29 255 mls/hr ONETIME ONE Administration Thiamine HCl 100 mg 08/29/20 10:36 08/29/20 12:40 Thiamine 100 Mg Tab PO 08/29/20 10:37 Not Given ONETIME ONE - Re-Assessments/Exams Free Text/Narrative Re-Assessment/Exam: 08/29/20 11:18 Patient examined family bedside she still feels patient is confused we spoke to the hospitalist about admission patient could have possibly Warnicke's so we will start her on IV thiamine give IV fluids and order MRI brain. Free Text/Narrative Re-Assessment/Exam: 08/29/20 14:24 Patient was to be admitted here eye and hospitalist has spoken about this patient was excepted. Per the nursing staff Kenya Robles, Arelis Finch and Rachel Beasley, patient cannot stay here to the nursing staff. They states the patient required one-to-one. We spoke to him about this and states that patient is not withdrawing to have no withdrawal symptoms. He states the patient requires a one-to-one in the past. We again reviewed the notes and patient never been admitted here. they continue to said the patient is not fit and cannot stay at this hospital due to not having appropriate staffing. We were able to call [facility] and speak to the neurologist thereDr. Rubio the ER doctor Dr. Jacobo and accepted the patient for transfer. Departure - Departure Time of Disposition: 14:26 Disposition: DC/Tfer to Acute Hospital 02 Condition: Fair Clinical Impression: Wernicke encephalopathy - Discharge Information *PRESCRIPTION DRUG MONITORING PROGRAM REVIEWED*: Not Applicable *COPY OF PRESCRIPTION DRUG MONITORING REPORT IN PATIENT IRMA: Not Applicable Sepsis Event Note (ED) - Evaluation Sepsis Screening Result: No Definite Risk - Focused Exam Vital Signs: Vital Signs Temp Pulse Resp BP Pulse Ox 08/29/20 10:30 87 16 100 08/29/20 09:33 78 16 105/75 100 08/29/20 08:54 97.4 F 70 18 125/77 100 - My Orders Last 24 Hours: My Active Orders 08/29/20 11:00 Sodium Chloride 0.9% [Normal Saline] 1,000 ml IV ASDIRECTED - Assessment/Plan Last 24 Hours: My Active Orders 08/29/20 11:00 Sodium Chloride 0.9% [Normal Saline] 1,000 ml IV ASDIRECTED Plan: Patient is a 49-year-old female who has been seen in the ER 3 times months for similar complaints. Patient did not follow-up with dermatology has not been taking the medication that was prescribed for her. Patient continuously refuses admissions and or transfer. She brought in by his sister who was worried and wants us to do work-up that we have already done in the past. We explained to the sister that we have done these work-ups and essentially been negative we have tried offer admission before in the past but she is refused. Be unlikely we can transfer the patient to [facility] today as they attempted to 3 days ago because not longer work acute issue. Patient may need to have this work-up done as outpatient. We will obtain his labs again and reassess patient.
[2020-08-29 10:07] LABS: BLOOD UREA NITROGEN,BUN 15 mg/dL (7.0-18.0); CARBON DIOXIDE,CO2 24.4 mmol/L (21.0-32.0); CHLORIDE,CL 98 mmol/L (98-107); GLUCOSE RANDOM 106 mg/dL (74-106); LIPASE 30 U/L (73-393); POTASSIUM,K 4.4 mmol/L (3.5-5.1); SODIUM,NA 135 mmol/L (136-145)
[2020-08-29] MEDS ORDERED: Thiamine 100 MG Tab PO ONE (10:36)
[2020-08-29] MEDS ORDERED: Folic Acid 1 MG Tab PO ONE (10:36)
[2020-08-29] MEDS ORDERED: Sodium Chloride 0.9% 1,000 ML IV SCH (11:00)
[2020-08-29] MEDS ORDERED: Thiamine 200 MG/2 ML MDV IVPUSH ONE (11:15)
[2020-08-29] MEDS ORDERED: Thiamine 500 MG in Sodium Chloride 0.9% 250 ML IV ONE (11:30)
[2020-08-29] MEDS ORDERED: Sodium Chloride 0.9% 2.5 ML Syringe FLUSH PRN (13:01)
[2020-08-29] MEDS ORDERED: Ondansetron 4 MG/2 ML SDV IVPUSH PRN (13:01)
[2020-08-29] MEDS ORDERED: LORazepam 2 MG/ML SDV IVPUSH PRN (13:04)
[2020-08-29] MEDS ORDERED: Lactated Ringers 1,000 ML IV SCH (13:06)
--- NOTE | 2020-08-29 14:50 | CR ---
Indication: Altered mental status Technique: Chest 1 view Comparison: August 26, 2020 Findings/Impression: Cardiovascular and mediastinum: Heart size and vasculature are normal in caliber and appearance. Mediastinum is within normal limits. Lungs and pleural space: Lungs are clear. No sign of infiltrate or mass. No sign of pleural effusion. No pneumothorax. Bones and soft tissues: No significant findings. Dictated by Jodi Marie MD @ 08/29/2020 2:48:[address] Jodi Marie @ Aug 29 2020 2:48PM
[2020-08-29] MEDS ORDERED: Thiamine 500 MG in Sodium Chloride 0.9% 250 ML IV SCH (20:00)
[2020-08-30] MEDS ORDERED: Folic Acid 50 MG/10 ML MDV SUBCUT SCH (09:00)
== END 2020-08-29 15:40 ==
LOC: MW.ED 08:52 → MW.MS 11:17 → UNDOADMIN 11:17 → UNDODISIN 15:40
DX: E51.2 Wernicke's encephalopathy (principal); E11.9 Type 2 diabetes mellitus without complications; Z88.8 Allergy status to other drugs, medicaments and biological substances
CPT/HCPCS: 36415; 71045; 80053; 80307; 82140; 83605; 83690; 83735; 84100; 85025; 96365; 99285; A9270; J3411; J7030; J7050

== ENCOUNTER 2020-11-18 17:09 | Emergency (ER) | payer MEDICAID, OTHER ==
[2020-11-18] MEDS ORDERED: Sodium Chloride 0.9% 2.5 ML Syringe FLUSH PRN (20:16)
[2020-11-18] MEDS ORDERED: Sodium Chloride 0.9% 10 ML Syringe FLUSH PRN (20:16)
[2020-11-18] MEDS ORDERED: Sodium Chloride 0.9% 1,000 ML IV ONE (20:16)
[2020-11-18 21:23] LABS: BLOOD UREA NITROGEN,BUN 11 mg/dL (7.0-18.0); CARBON DIOXIDE,CO2 22.8 mmol/L (21.0-32.0); CHLORIDE,CL 101 mmol/L (98-107); GLUCOSE RANDOM 83 mg/dL (74-106); POTASSIUM,K 4.6 mmol/L (3.5-5.1); SODIUM,NA 137 mmol/L (136-145)
[2020-11-18] MEDS ORDERED: Meclizine 25 MG Tab PO ONE (21:29)
--- NOTE | 2020-11-18 21:37 | EDM.PDOC ---
ED HPI GENERAL MEDICAL PROBLEM - General Chief Complaint: Cardiovascular Problem Stated Complaint: DIZZY, CAN'T WALK Time Seen by Provider: 11/18/20 20:00 - History of Present Illness INITIAL COMMENTS - FREE TEXT/NARRATIVE: HISTORY AND PHYSICAL: History of present illness: This is a 50-year-old female with no significant past medical history for hypertension, diabetes, liver, lung, kidney problems who presents ER today secondary to having episodes of vertigo and off-balance intermittently for the last 3 weeks that she attributes to her second moderna coronavirus vaccination. Patient denies any recent fevers, shakes, chills, nausea, vomiting, diarrhea, dysuria, frequency, urgency, chest pain, shortness of breath. Patient reports that she has had normal p.o. intake and tolerating liquids well. Patient reports no medications. Patient has any tobacco alcohol or drugs. Patient denies any known sick contacts. Patient reports that approximate 1 week ago secondary to her dizziness she ended up falling down and hitting her head. She reports that she did get a CT scan at that time that was unremarkable. Review of systems: As per history of present illness and below otherwise all systems reviewed and negative. Past medical history: As per history of present illness and as reviewed below otherwise noncontributory. Surgical history: As per history of present illness and as reviewed below otherwise noncon tributory. Social history: No reported history of drug abuse. Family history: As per history of present illness and as reviewed below otherwise noncontributory. Physical exam: This patient was seen and evaluated during the 2019 SARS-CoV-2 novel coronavirus pandemic period. Community viral transmission is ongoing at time of this encounter and the emergency department is operating under pandemic response procedures. Constitutional: Patient is oriented to person, place, and time. Appears well- developed and well-nourished. No distress. HEENT: Moist mucous membranes Head: Normocephalic and atraumatic Eyes: Right eye exhibits no discharge. Left eye exhibits no discharge. No scleral icterus Neck: Normal range of motion. No tracheal deviation present. Cardiovascular: Normal rate and regular rhythm. Pulmonary: Effort normal, no respiratory distress. Abdominal: No distention Musculoskeletal: Normal range of motion Neuro: A&Ox3. Cranial nerves II-XII grossly intact, 5/5 strength to bilateral upper and lower extremities, sensation intact to bilateral upper and lower extremities, no nystagmus, PERRLA, EOMI, normal speech, proprioception intact to bilateral lower extremities, normal finger to nose test, gait normal Skin: [place], warm and dry. Psychiatric: Normal mood and affect. Behavior is normal. Judgment and thought content normal. Nursing note and vital signs have been reviewed Diagnostics: CBC, CMP, CT head, urinalysis Therapeutics: NSS x1 L. Meclizine 50 mg p.o. Assessment and plan: This is a 50-year-old female who presents ER today secondary to feeling off balance ever since her second coronavirus vaccination. Patient reports that she had the same symptoms after her first coronavirus vaccination. Patient in the ED has no neurological deficit. Patient has no nystagmus on exam. Patient has normal [id number]. Patient has normal speech and normal gait. Patient will have a CT scan of her head secondary to her recent fall to ensure no delayed bleed. Patient will be given meclizine in the ED and will be reevaluated after CT scan and labs. CT scan head was unremarkable. Patient's urinalysis reveals that she does have a urinary tract infection. Patient be discharged home with Macrobid and meclizine and will be checked follow-up with her doctor in 1 to 2 days. Reassessment at the time of disposition demonstrates that the patient is in no acute distress. The patient has remained stable throughout the entire ED visit and is without objective evidence for acute process requiring urgent intervention or hospitalization. The patient is stable for discharge, counseling is provided as documented above, discussed symptomatic treatment and specific conditions for return. I have spoken with the patient/caregiver and discussed todays findings, in addition to providing specific details for the plan of care. Questions are answered and there is agreement with the plan. Definitive disposition and diagnosis as appropriate pending reevaluation and review of above. - Related Data Allergies Allergy/AdvReac Type Severity Reaction Status Date / Time promethazine [From Phenergan] Allergy Other Verified 11/18/20 17:29 Home Meds: Home Meds Meclizine HCl 25 mg PO TID PRN #15 tablet 11/18/20 [Rx] Nitrofurantoin Monohyd/M-Cryst [Macrobid 100 mg Capsule] 100 mg PO BID #14 capsule 11/18/20 [Rx] Past Medical History HEENT History: Reports: Impaired Vision Cardiovascular History: Reports: None Respiratory History: Reports: None Gastrointestinal History: Reports: None Genitourinary History: Reports: None COATING MANAGER History: Reports: None Musculoskeletal History: Reports: Fibromyalgia, SLE, Other (See Below) Other Musculoskeletal History: hip dysplasia, buldging disc Neurological History: Reports: None Psychiatric History: Reports: None Endocrine/Metabolic History: Reports: Diabetes, Type II Insulin Pump Model and Plate Mounter: N/A Hematologic History: Reports: None Immunologic History: Reports: None Oncologic (Cancer) History: Reports: None Dermatologic History: Reports: None - Infectious Disease History Infectious Disease History: Reports: Chicken Pox, Mumps, Other (See Below) Other Infectious Disease History: childhood - Past Surgical History Head Surgeries/Procedures: Reports: None HEENT Surgical History: Reports: None Cardiovascular Surgical History: Reports: None Respiratory Surgical History: Reports: None GI Surgical History: Reports: Bariatric Procedure Female Surgical History: Reports: None Endocrine Surgical History: Reports: None Neurological Surgical History: Reports: None Musculoskeletal Surgical History: Reports: None Oncologic Surgical History: Reports: None Dermatological Surgical History: Reports: None Social & Family History - Family History Family Medical History: No Pertinent Family History Cardiac: Reports: Other (See Below) Other Cardiac Family History: States father have cardiac issues - Tobacco Use Tobacco Use Status *Q: Current Every Day Tobacco User Years of Tobacco use: 10 Packs/Tins Daily: 0.2 - Caffeine Use Caffeine Use: Reports: Coffee - Recreational Drug Use Recreational Drug Use: No ED ROS GENERAL - Review of Systems Review Of Systems: See Below ED EXAM, GENERAL - Physical Exam Exam: See Below #1 Interpretation EKG Interpretation Comments: November 18, 2020 8:55 PM EKG: As interpreted by ER physician: Seferino: Nonspecific ST-T wave abnormalities Normal axis No evidence of ST elevation CO Normal sinus rhythm heart rate of 95 Course - Vital Signs Last Recorded V/S: Last Vital Signs Temp 98.2 F 11/18/20 17:27 Pulse 97 11/18/20 17:27 Resp 18 11/18/20 17:27 BP 96/75 11/18/20 17:27 Pulse Ox 92 L 11/18/20 17:27 - Orders/Labs/Meds Orders: Active Orders 24 hr Category Date Time Status Saline Lock Insert [OM.PC] Stat Oth 11/18/20 20:16 Ordered Labs: Laboratory Tests 11/18/20 11/18/20 11/18/20 Range/Units 20:33 20:45 20:45 WBC 6.13 (4.0-11.0) K/uL RBC 3.48 L (4.30-5.90) M/uL Hgb 11.6 L (12.0-16.0) g/dL Hct 32.7 L (36.0-46.0) % MCV 94.0 (80.0-98.0) fL MCH 33.3 H (27.0-32.0) pg MCHC 35.5 (31.0-37.0) g/dL RDW Std Deviation 57.9 (28.0-62.0) fl RDW Coeff of Stephanie 17 H (11.0-15.0) % Plt Count 120 L (150-400) K/uL MPV 10.20 (7.40-12.00) fL Neut % (Auto) 67.4 (48.0-80.0) % Lymph % (Auto) 25.8 (16.0-40.0) % [place] % (Auto) 6.4 (0.0-15.0) % Eos % (Auto) 0.2 (0.0-7.0) % Baso % (Auto) 0.2 (0.0-1.5) % Neut # (Auto) 4.1 (1.4-5.7) K/uL Lymph # (Auto) 1.6 (0.6-2.4) K/uL [place] # (Auto) 0.4 (0.0-0.8) K/uL Eos # (Auto) 0.0 (0.0-0.7) K/uL Baso # (Auto) 0.0 (0.0-0.1) K/uL Nucleated RBC % 0.0 /100WBC Nucleated RBCs # 0 K/uL Sodium (136-145) mmol/L Potassium (3.5-5.1) mmol/L Chloride (98-107) mmol/L Carbon Dioxide (21.0-32.0) mmol/L BUN (7.0-18.0) mg/dL Creatinine (0.6-1.0) mg/dL Est Cr Clr Drug Dosing mL/min Estimated GFR (MDRD) ml/min Glucose (74-106) mg/dL Calcium (8.5-10.1) mg/dL Total Bilirubin (0.2-1.0) mg/dL AST (15-37) IU/L ALT (14-63) IU/L Alkaline Phosphatase (46-116) U/L Troponin I (0.000-0.056) ng/mL Total Protein (6.4-8.2) g/dL Albumin (3.4-5.0) g/dL Globulin (2.6-4.0) g/dL Albumin/Globulin Ratio (0.9-1.6) Urine Color ORANGE Urine Appearance SLT CLOUDY Urine pH 6.5 (5.0-8.0) Ur Specific Antimony >= 1.030 (1.001-1.035) Urine Protein 100 H (NEGATIVE) mg/dL Urine Glucose (UA) 100 H (NEGATIVE) mg/dL Urine Ketones 15 H (NEGATIVE) mg/dL Urine Occult Blood TRACE-INTACT H (NEGATIVE) Urine Nitrite POSITIVE H (NEGATIVE) Urine Bilirubin LARGE H (NEGATIVE) Urine Ictotest POSITIVE Urine Urobilinogen >=8.0 H (<2.0) EU/dL Ur Leukocyte Esterase SMALL H (NEGATIVE) U Hyaline Cast (Auto) 0-2 (0-2/LPF) Urine RBC 0-3 (0-2/HPF) Urine WBC 10-15 (0-5/HPF) Ur Epithelial Cells FEW (NONE-FEW) Urine Bacteria 3+ H (NEGATIVE) Urinalysis Comment SARS-CoV-2 RNA (JENNIFER) NEGATIVE (NEGATIVE) 11/18/20 Range/Units 20:45 WBC (4.0-11.0) K/uL RBC (4.30-5.90) M/uL Hgb (12.0-16.0) g/dL Hct (36.0-46.0) % MCV (80.0-98.0) fL MCH (27.0-32.0) pg MCHC (31.0-37.0) g/dL RDW Std Deviation (28.0-62.0) fl RDW Coeff of Stephanie (11.0-15.0) % Plt Count (150-400) K/uL MPV (7.40-12.00) fL Neut % (Auto) (48.0-80.0) % Lymph % (Auto) (16.0-40.0) % [place] % (Auto) (0.0-15.0) % Eos % (Auto) (0.0-7.0) % Baso % (Auto) (0.0-1.5) % Neut # (Auto) (1.4-5.7) K/uL Lymph # (Auto) (0.6-2.4) K/uL [place] # (Auto) (0.0-0.8) K/uL Eos # (Auto) (0.0-0.7) K/uL Baso # (Auto) (0.0-0.1) K/uL Nucleated RBC % /100WBC Nucleated RBCs # K/uL Sodium 137 (136-145) mmol/L Potassium 4.6 (3.5-5.1) mmol/L Chloride 101 (98-107) mmol/L Carbon Dioxide 22.8 (21.0-32.0) mmol/L BUN 11 (7.0-18.0) mg/dL Creatinine 0.7 (0.6-1.0) mg/dL Est Cr Clr Drug Dosing 91.42 mL/min Estimated GFR (MDRD) > 60.0 ml/min Glucose 83 (74-106) mg/dL Calcium 8.8 (8.5-10.1) mg/dL Total Bilirubin 4.2 H (0.2-1.0) mg/dL AST 145 H (15-37) IU/L ALT 39 (14-63) IU/L Alkaline Phosphatase 311 H (46-116) U/L Troponin I < 0.050 (0.000-0.056) ng/mL Total Protein 6.5 (6.4-8.2) g/dL Albumin 2.3 L (3.4-5.0) g/dL Globulin 4.2 H (2.6-4.0) g/dL Albumin/Globulin Ratio 0.6 L (0.9-1.6) Urine Color Urine Appearance Urine pH (5.0-8.0) Ur Specific [place] (1.001-1.035) Urine Protein (NEGATIVE) mg/dL Urine Glucose (UA) (NEGATIVE) mg/dL Urine Ketones (NEGATIVE) mg/dL Urine Occult Blood (NEGATIVE) Urine Nitrite (NEGATIVE) Urine Bilirubin (NEGATIVE) Urine Ictotest Urine Urobilinogen (<2.0) EU/dL Ur Leukocyte Esterase (NEGATIVE) U Hyaline Cast (Auto) (0-2/LPF) Urine RBC (0-2/HPF) Urine WBC (0-5/HPF) Ur Epithelial Cells (NONE-FEW) Urine Bacteria (NEGATIVE) Urinalysis Comment SARS-CoV-2 RNA (JENNIFER) (NEGATIVE) Meds: Medications Discontinued Medications Generic Name Dose Route Start Last Admin Trade Name Freq PRN Reason Stop Dose Admin Sodium Chloride 1,000 mls @ 999 mls/hr 11/18/20 20:16 11/18/20 20:42 Normal Saline IV 11/18/20 21:16 999 mls/hr .Bolus ONE Administration Meclizine HCl 50 mg 11/18/20 21:29 11/18/20 22:18 Meclizine 25 Mg Tab PO 11/18/20 21:30 50 mg ONETIME ONE Administration Meclizine HCl Confirm 11/18/20 22:16 11/18/20 22:18 Meclizine 25 Mg Tab Administered 11/18/20 22:17 Not Given Dose 25 mg .ROUTE .STK-MED ONE Nitrofurantoin Macrocrystals 100 mg 11/18/20 21:38 11/18/20 22:18 Nitrofurantoin Monohydrate/Macrocrystalline 100 Mg Cap PO 11/18/20 21:39 100 mg ONETIME ONE Administration Sodium Chloride 10 ml 11/18/20 20:16 Sodium Chloride 0.9% 10 Ml Syringe FLUSH ASDIRECTED PRN Keep Vein Open Sodium Chloride 2.5 ml 11/18/20 20:16 Sodium Chloride 0.9% 2.5 Ml Syringe FLUSH ASDIRECTED PRN Keep Vein Open Departure - Departure Time of Disposition: 22:59 Disposition: Home, Self-Care 01 Condition: Good Clinical Impression: Dizziness, Urinary tract infection Prescriptions: Nitrofurantoin Monohyd/M-Cryst [Macrobid 100 mg Capsule] 100 mg PO BID #14 capsule Meclizine HCl 25 mg PO TID PRN #15 tablet PRN Reason: Dizziness Instructions: Urinary Tract Infection, Adult, Dizziness, [id number] Referrals: Tigist Haywood MD [Primary Care Provider] - Forms: ED Department Discharge Additional Instructions: Your seen and evaluated in the ER today secondary to dizziness. Your CT scan of your head and your blood tests are normal except for what appears to be a urinary tract infection. You have been given a prescription for meclizine for your dizziness as well as a prescription for Macrobid for urinary tract infection. Please call your doctor in the morning for an appointment. The following information is given to patients seen in the emergency department who are being discharged to home. This information is to outline your options for follow-up care. We provide all patients seen in our emergency department with a follow-up referral. The need for follow-up, as well as the timing and circumstances, are variable depending upon the specifics of your emergency department visit. If you don't have a primary care physician on staff, we will provide you with a referral. We always advise you to contact your personal physician following an emergency department visit to inform them of the circumstance of the visit and for follow-up with them and/or the need for any referrals to a consulting specialist. The emergency department will also refer you to a specialist when appropriate. This referral assures that you have the opportunity for follow-up care with a specialist. All of these measure are taken in an effort to provide you with optimal care, which includes your follow-up. Under all circumstances we always encourage you to contact your private segundo mariscalian who remains a resource for coordinating your care. When calling for follow-up care, please make the office aware that this follow-up is from your recent emergency room visit. If for any reason you are refused follow-up, please contact the [facility] Emergency Department at and asked to speak to the emergency department charge nurse. [facility] - Primary Care [address] [place] [id number] [address] Sepsis Event Note (ED) - Evaluation Sepsis Screening Result: No Definite Risk - Focused Exam Vital Signs: Vital Signs Temp Pulse Resp BP Pulse Ox 11/18/20 17:27 98.2 F 97 18 96/75 92 L - My Orders Last 24 Hours: My Active Orders 11/18/20 20:16 Saline Lock Insert [OM.PC] Stat - Assessment/Plan Last 24 Hours: My Active Orders 11/18/20 20:16 Saline Lock Insert [OM.PC] Stat
[2020-11-18] MEDS ORDERED: Nitrofurantoin Monohydrate/Macrocrystalline 100 MG Cap PO ONE (21:38)
[2020-11-18] MEDS ORDERED: Meclizine 25 MG Tab ONE (22:16)
--- NOTE | 2020-11-18 22:18 | CT ---
INDICATION: Headache. Dizziness. TECHNIQUE: CT head without contrast. COMPARISON: None. FINDINGS: CSF spaces: Within normal limits for age. Brain parenchyma: The sanchez-white differentiation is normal. No sign of mass, hemorrhage, or midline shift. Skull base and calvarium: The visualized paranasal sinuses and mastoid air cells demonstrate no acute or significant findings. The visualized orbits are grossly unremarkable. No skull fractures. IMPRESSION: No acute intracranial abnormality. Please note that all CT scans at this facility use dose modulation, iterative reconstruction, and/or weight-based dosing when appropriate to reduce radiation dose to as low as reasonably achievable. Dictated by Roberth Slade MD @ 11/18/2020 10:17:49 PM (Electronically Signed)
== END 2020-11-18 23:14 | disposition home or self-care (01) ==
LOC: MW.ED 17:09
DX: R42 Dizziness and giddiness (principal); N39.0 Urinary tract infection, site not specified; E11.9 Type 2 diabetes mellitus without complications; Z88.8 Allergy status to other drugs, medicaments and biological substances; Z72.0 Tobacco use; Z20.822 Contact with and (suspected) exposure to COVID-19
CPT/HCPCS: 36415; 70450; 80053; 81001; 84484; 85025; 87635; 93005; 99284; A9270; J7030; U0002

== ENCOUNTER 2024-12-03 15:17 | Emergency (ER) | payer MEDICARE, MEDICAID ==
[2024-12-03] MEDS: Acetaminophen/HYDROcodone 325-5 MG Tab PO ONE (16:40)
== END 2024-12-03 16:59 | disposition home or self-care (01) ==
LOC: MW.ED 15:17
DX: L03.116 Cellulitis of left lower limb (principal); E11.9 Type 2 diabetes mellitus without complications; Z88.8 Allergy status to other drugs, medicaments and biological substances
CPT/HCPCS: 99283; A9270; 99284